=== PATIENT | female | born 1930 | race Caucasian/White ===

== ENCOUNTER 2017-08-11 08:56 | Inpatient (IN) ==
--- NOTE | 2017-08-11 09:23 | Emergency Department Note ---
Disposition Clinical Impression: Atrial fibrillation with RVR, Acute exacerbation of chronic obstructive airways disease Congestive heart failure Qualifiers: Heart failure type: unspecified Heart failure chronicity: acute on chronic Qualified Code(s): I50.9 - Heart failure, unspecified Pulmonary embolism Qualifiers: Pulmonary embolism type: other Chronicity: acute Acute cor pulmonale presence: without acute cor pulmonale Qualified Code(s): I26.99 - Other pulmonary embolism without acute cor pulmonale Disposition: Admitted As Inpatient Condition: Fair Referrals: Harriet Lama MD [Partnered Physician] - Forms: ED Satisfaction Letter SOB HPI - General Stated Complaint: Difficulty Breathing Time Seen by Provider: 08/11/17 08:57 Source: patient, EMS Mode of arrival: EMS Limitations: no limitations - History of Present Illness 86 yo F reports to the ED c/o SOB worse today. Patient was seen 07/26/17 at urgent care for similar sxs. Patient sent to ER from urgent care due to low O2 sat. Patient was worked up for possible COPD exacerbation but refused admission. Patient was discharged home on Azithromycin and Prednisone. Patient reports never fully getting better and continuing to have SOB, productive cough with clear sputum. She has a sore throat and was diagnosed with Thrush recently by PCP. She does report palipitations today. She denies fever, nasal congestion , chest pain, orthopnea. Pt Subjective Complaint: shortness of breath Onset (ago): week(s) (2 weeks worse today) Context: recent illness Consistency/Duration: constant Improves with: oxygen, bronchodilators Associated symptoms: Reports: cough, wheezing, sputum production, palpitations, other (nausea no vomiting). Denies: chest pain, fever, orthopnea, lower extremity pain, polyuria, hemoptysis, abdominal pain Cough present: Yes Cough Description: Productive Sputum production: Yes Sputum Color: Clear - Related Data Home Medications Medication Instructions Recorded Confirmed Aspirin [Adult Aspirin Regimen] 81 mg PO DAILY 08/11/17 08/11/17 Calcium Carbonate [Calcium] 500 mg PO DAILY 08/11/17 08/11/17 Metoprolol Tartrate [Metoprolol 100 mg PO DAILY 08/11/17 08/11/17 Tartrate] Multivitamin [One Daily Essential] 1 tab PO DAILY 08/11/17 08/11/17 Simvastatin [Zocor] 20 mg PO HS 08/11/17 08/11/17 metFORMIN [Glucophage] 500 mg PO DAILY 08/11/17 08/11/17 Allergies Allergy/AdvReac Type Severity Reaction Status Date / Time guaifenesin [From Mucinex] Allergy Rash Verified 08/11/17 10:44 Penicillins [PCN] Allergy Rash Verified 08/11/17 10:44 sulfamethoxazole Allergy Rash Verified 08/11/17 10:44 [From Bactrim] trimethoprim [From Bactrim] Allergy Rash Verified 08/11/17 10:44 chlorine Allergy See Uncoded 08/11/17 10:44 Comments Review of Systems: As Per HPI Past Medical History - Past Medical History Medical history: Reports: diabetes, hypertension, myocardial infarction Psychiatric history: Reports: no psych history - Social History Smoking Status: Former smoker Smokeless Tobacco Status: No Alcohol use: Reports: none Drug use: Reports: none Physical Exam - General Limitations: no limitations General appearance: alert, in no apparent distress - Head Head exam: atraumatic, normocephalic - Eye Eye exam: Present: PERRL, EOMI - ENT ENT exam: mucous membranes moist, other (Thursh) - Neck Neck exam: Present: full ROM, trachea midline - Chest Chest inspection: Present: symmetric chest wall rise. Absent: tenderness - Respiratory Respiratory exam: Present: wheezes. Absent: respiratory distress - Cardiovascular Cardiovascular exam: Present: tachycardia, irregular rhythm - Abdominal Exam Abdominal exam: Present: soft, Non-Tender - Extremities Exam Extremities exam: Present: pedal edema. Absent: calf tenderness - Neurological Exam Neurological exam: Present: alert, oriented X3, CN II-XII intact. Absent: motor sensory deficit - Psychiatric Psychiatric exam: Present: normal affect, normal mood - Skin Skin exam: Present: warm, dry Course Course Narrative: patient presented in new onset a fib with RVR. Patient was started on IV fluid bolus and give 15mg IV cadizem. Patient converted out of a fib, remained tachycardic now sinus tach. Patient given metoprolol to control HR. Patient given Duoneb breathign treatemnt. Patient BNP over 1,000. Fluids stopped. Started IV lasix 40mg once. Will check CTA chest and admit to hospitalist for CHF and COPD exacerbations and new onset a fib with RVR. - Consultations Consultation #1: Discussed case with admitting hospitalist who accepted patient for admission. Vital Signs Temperature 98.7 F 08/11/17 09:13 Pulse Rate 141 08/11/17 09:13 Respiratory Rate 18 08/11/17 09:13 Blood Pressure 166/85 08/11/17 09:13 O2 Sat by Pulse Oximetry 95 08/11/17 09:13 Temperature 98.7 F 08/11/17 09:13 Pulse Rate 112 08/11/17 11:25 Respiratory Rate 20 08/11/17 11:25 Blood Pressure 100/90 08/11/17 11:25 O2 Sat by Pulse Oximetry 98 08/11/17 11:25 Oxygen Delivery Oxygen Delivery Nasal Cannula Shortness of Breath/Dyspnea - MDM Narrative Medical decision making narrative: Patient had ECHO in 2011 which showed normal systolic dysfunction and mild diastolic dysfunction. Patient fluid overloaded on exam. Patient also having wheezing on exam. Patient had new onset a fib with RVR now out of a fib. We will admit for COPD and CHF exacerbations as well as new onset a fib with RVR. Patient found to have PE on CTA. Will start on Lovenox 1mg/kg Q12H. Another reason patient will need admission. - Differential Diagnosis Likely: acute exacerbation of chronic obstructive airways disease, congestive heart failure - Medical Records Medical records reviewed: Yes I reviewed the patient's medical records. - Lab Data Lab results reviewed: Yes I reviewed the patient's lab results. Result diagrams: 08/11/17 09:27 08/11/17 09:27 Lab Results 08/11/17 08/11/17 08/11/17 Range/Units 09:27 09:27 09:27 WBC 8.0 (4.3-11.1) K/mcL RBC 3.74 L (3.82-4.97) M/mcL Hgb 11.6 (11.5-15.4) g/dL Hct 34.5 L (35.3-44.9) % MCV 92.2 (83.0-100.0) fL MCH 31.0 (28.0-33.3) pg MCHC 33.6 (31.6-35.5) g/dL RDW 14.1 (11.5-14.5) % Plt Count 229 (140-400) K/mcL MPV 10.7 (9.4-12.4) fL Immature Gran % 0.1 (0-4) % Seg Neutrophils % 73.6 % Lymphocytes % 16.6 % Monocytes % 8.2 % Eosinophils % 1.1 % Basophils % 0.4 % Neutrophils # 5.9 (1.6-8.9) K/mcL Lymphocytes # 1.3 (0.6-4.6) K/mcL Monocytes # 0.7 (0.0-1.3) K/mcL Eosinophils # 0.1 (0.0-0.6) K/mcL Basophils # 0.0 (0.0-0.2) K/mcL PT (9.4-12.1) Seconds INR APTT (26.0-36.0) Seconds Sodium 142 (136-145) mEq/L Potassium 3.8 (3.5-5.1) mEq/L Chloride 101 (98-107) mEq/L Carbon Dioxide 26 (23-29) mEq/L BUN 21 (8-23) mg/dL Creatinine 0.72 (0.60-1.20) mg/dL Est GFR ( Amer) > 60 (> 60) Est GFR (Non-Af Amer) > 60 (> 60) BUN/Creatinine Ratio 29 H (6-26) Glucose 233 H (70-105) mg/dL Calculated Osmolality 304 H (280-300) Lactic Acid (0.5-2.2) mmol/L Calcium 9.5 (8.6-10.3) mg/dL Total Bilirubin 0.9 (0.3-1.0) mg/dL Direct Bilirubin 0.2 (0.0-0.2) mg/dL Indirect Bilirubin 0.7 (0.0-1.2) mg/dL AST 22 (13-39) Units/L ALT 17 (7-52) Units/L Alkaline Phosphatase 87 (34-104) Units/L Troponin I 0.05 H* (< 0.04) ng/mL B-Natriuretic Peptide 1028 H (Less than 100) pg/mL Serum Total Protein 7.2 (6.4-8.9) g/dL Albumin 3.2 L (3.5-5.7) g/dL Globulin 4.0 H (2.4-3.5) g/dL Albumin/Globulin Ratio 0.8 L (1.1-2.2) Lipase 31 (11-82) Units/L 08/11/17 08/11/17 Range/Units 09:27 09:40 WBC (4.3-11.1) K/mcL RBC (3.82-4.97) M/mcL Hgb (11.5-15.4) g/dL Hct (35.3-44.9) % MCV (83.0-100.0) fL MCH (28.0-33.3) pg MCHC (31.6-35.5) g/dL RDW (11.5-14.5) % Plt Count (140-400) K/mcL MPV (9.4-12.4) fL Immature Gran % (0-4) % Seg Neutrophils % % Lymphocytes % % Monocytes % % Eosinophils % % Basophils % % Neutrophils # (1.6-8.9) K/mcL Lymphocytes # (0.6-4.6) K/mcL Monocytes # (0.0-1.3) K/mcL Eosinophils # (0.0-0.6) K/mcL Basophils # (0.0-0.2) K/mcL PT 14.8 H (9.4-12.1) Seconds INR 1.4 APTT 31.3 (26.0-36.0) Seconds Sodium (136-145) mEq/L Potassium (3.5-5.1) mEq/L Chloride (98-107) mEq/L Carbon Dioxide (23-29) mEq/L BUN (8-23) mg/dL Creatinine (0.60-1.20) mg/dL Est GFR ( Amer) (> 60) Est GFR (Non-Af Amer) (> 60) BUN/Creatinine Ratio (6-26) Glucose (70-105) mg/dL Calculated Osmolality (280-300) Lactic Acid 1.4 (0.5-2.2) mmol/L Calcium (8.6-10.3) mg/dL Total Bilirubin (0.3-1.0) mg/dL Direct Bilirubin (0.0-0.2) mg/dL Indirect Bilirubin (0.0-1.2) mg/dL AST (13-39) Units/L ALT (7-52) Units/L Alkaline Phosphatase (34-104) Units/L Troponin I (< 0.04) ng/mL B-Natriuretic Peptide (Less than 100) pg/mL Serum Total Protein (6.4-8.9) g/dL Albumin (3.5-5.7) g/dL Globulin (2.4-3.5) g/dL Albumin/Globulin Ratio (1.1-2.2) Lipase (11-82) Units/L - Radiology Data Radiology results reviewed: Yes I reviewed the patient's radiology results. - EKG Data EKG attestation: Yes I reviewed and interpreted this EKG. EKG results narrative: EKG 08/11/17 9:04 A fib with RVR non specific St and t wave abnormality vent rate 144 QRS 86 QT/QTc 275/358 compared to prior EKG of 07/26/17 opatietn ahs new onset a fib with RVR EKG 08/11/17 9;52 SInus tachycardia Rate 115 bpm [place] interval 163 QRS 89 QT/QTc 313/81 sinus tchy cardia compared ot earlier EKG of 9:04 a fib has convrted to sinus rythym.
[2017-08-11] MEDS ORDERED: 0.9 % Sodium Chloride 1,000 ML IVC ONE (09:24)
[2017-08-11] MEDS ORDERED: Isovue-370 500 ML INFUS..BTL IV ONE (09:24)
--- NOTE | 2017-08-11 09:40 | Emergency Department Note ---
Disposition Clinical Impression: Atrial fibrillation with RVR Disposition: Admitted As Inpatient Referrals: Harriet Lama MD [Primary Care Provider] - General Adult HPI - General Chief complaint: ED Shortness of Breath/Dyspnea Stated complaint: Difficulty Breathing Time Seen by Provider: 08/11/17 08:57 Source: patient, EMS Mode of arrival: EMS Limitations: no limitations - History of Present Illness Pain Scale: 0 - Related Data Home Medications Medication Instructions Recorded Confirmed Aspirin 07/26/17 Calcium 07/26/17 Cinnamon 07/26/17 Furosemide 07/26/17 Melatonin 07/26/17 Metformin HCl 07/26/17 Metoprolol 07/26/17 Simvastatin 07/26/17 Turmeric 07/26/17 07/26/17 Vitamin B-12 07/26/17 Vitamin D3 07/26/17 Vitamin E 07/26/17 07/26/17 Previous Rx's Medication Instructions Recorded Azithromycin [Azithromycin 6-Tab 250 mg PO PER PKG DI #6 tab 07/26/17 Pack] PredniSONE [Deltasone] 40 mg PO DAILY #5 tablet 07/26/17 Allergies Allergy/AdvReac Type Severity Reaction Status Date / Time guaifenesin [From Mucinex] Allergy Rash Verified 07/26/17 17:24 Penicillins [PCN] Allergy Rash Verified 07/26/17 17:24 sulfamethoxazole Allergy Rash Verified 07/26/17 17:24 [From Bactrim] trimethoprim [From Bactrim] Allergy Rash Verified 07/26/17 17:24 chlorine Allergy See Uncoded 07/26/17 17:24 Comments Past Medical History - Past Medical History Medical history: Reports: diabetes, hypertension, myocardial infarction Psychiatric history: Reports: no psych history - Social History Smoking Status: Former smoker Smokeless Tobacco Status: No Alcohol use: Reports: none Drug use: Reports: none Physical Exam - General Limitations: no limitations General appearance: alert, in no apparent distress Course Vital Signs Temperature 98.7 F 08/11/17 09:13 Pulse Rate 141 08/11/17 09:13 Respiratory Rate 18 08/11/17 09:13 Blood Pressure 166/85 08/11/17 09:13 O2 Sat by Pulse Oximetry 95 08/11/17 09:13 Temperature 98.7 F 08/11/17 09:13 Pulse Rate 141 08/11/17 09:13 Respiratory Rate 18 08/11/17 09:13 Blood Pressure 166/85 08/11/17 09:13 O2 Sat by Pulse Oximetry 98 08/11/17 09:21 Oxygen Delivery Oxygen Delivery Nasal Cannula Attestation Statement - Attestation Attestation: I examined this patient and my medical decision-making was reviewed with the Resident Physician. I agree with the documented findings, disposition and treatment plan as described except to the extent set forth below. 86 year old female presents to the ED with afib rvr and a history of cough with possible pneumonia/COPD excerbation. Pablo states taht she was advised to be admitted earlier this month from urgent care and ED but declined at that time. Is unsure how long she has been in afib rvr. Crescencio does not have a previous history of afib with rvr. We will do a cardiopulmonary workup , treat with IVF, cardizem and rule out PE/pnueoina with CTA chest. Admit to medicine
[2017-08-11 09:49] LABS: Basophils % 0.4 %; Eosinophils # 0.1 K/mcL (0.0-0.6); Eosinophils % 1.1 %; Hematocrit 34.5 % (35.3-44.9); Hemoglobin 11.6 g/dL (11.5-15.4); Immature Granulocytes % 0.1 % (0-4); Lymphocytes # 1.3 K/mcL (0.6-4.6); Lymphocytes % 16.6 %; Mean Corpuscular HGB Conc 33.6 g/dL (31.6-35.5); Mean Corpuscular Volume 92.2 fL (83.0-100.0); Mean Platelet Volume 10.7 fL (9.4-12.4); Monocytes # 0.7 K/mcL (0.0-1.3); Monocytes % 8.2 %; Neutrophils # 5.9 K/mcL (1.6-8.9); Platelet Count 229 K/mcL (140-400); Red Blood Count 3.74 M/mcL (3.82-4.97); Red Cell Distribution Width 14.1 % (11.5-14.5); Segmented Neutrophils % 73.6 %
[2017-08-11 10:00] LABS: INR 1.4; Prothrombin Time 14.8 Seconds (9.4-12.1)
[2017-08-11 10:03] LABS: Activated Partial Thrombo Time 31.3 Seconds (26.0-36.0)
[2017-08-11] MEDS ORDERED: *HR* Metoprolol 5 MG/5 ML VIAL IVP ONE (10:06)
[2017-08-11] MEDS ORDERED: Ipratropium/Albuterol Neb 3 ML IH ONE (10:06)
[2017-08-11 10:21] LABS: Troponin I 0.05 ng/mL (< 0.04)
[2017-08-11 10:22] LABS: Alanine Aminotransferase 17 Units/L (7-52); Albumin 3.2 g/dL (3.5-5.7); Albumin/Globulin Ratio 0.8 (1.1-2.2); Alkaline Phosphatase 87 Units/L (34-104); Aspartate Amino Transferase 22 Units/L (13-39); BUN/Creatinine Ratio 29 (6-26); Bilirubin,Direct 0.2 mg/dL (0.0-0.2); Bilirubin,Indirect 0.7 mg/dL (0.0-1.2); Bilirubin,Total 0.9 mg/dL (0.3-1.0); Blood Urea Nitrogen 21 mg/dL (8-23); Calcium 9.5 mg/dL (8.6-10.3); Carbon Dioxide 26 mEq/L (23-29); Chloride 101 mEq/L (98-107); Glucose 233 mg/dL (70-105); Lipase 31 Units/L (11-82); Osmolality,Calculated 304 (280-300); Potassium 3.8 mEq/L (3.5-5.1); Sodium 142 mEq/L (136-145); Total Protein 7.2 g/dL (6.4-8.9); eGFR For African Americans > 60 (> 60); eGFR For Non-African Americans > 60 (> 60)
[2017-08-11] MEDS ORDERED: Furosemide 40 MG/4 ML VIAL IVP ONE (10:22)
[2017-08-11] MEDS ORDERED: Aspirin 81 MG TAB.CHEW PO STA (10:22)
[2017-08-11] MEDS ORDERED: *HR* Enoxaparin 120 MG/0.8 ML SYRINGE SQ ONE (12:00)
[2017-08-11] MEDS ORDERED: Acetaminophen 325 MG TABLET PO PRN (12:26)
[2017-08-11] MEDS ORDERED: traMADol 50 MG TABLET PO PRN (12:26)
[2017-08-11] MEDS ORDERED: Naloxone 0.4 MG/ML INJ IVP PRN (12:26)
--- NOTE | 2017-08-11 12:28 | Electrocardiograph Report ---
[place] [facility] Test Date: 2017-08-11 Pat Name: Bindu Wilkins Department: 102 Room: 2A Gender: F Nicu Rn: Holden : 1930 Requested By: Rox Carballo Order Number: [id number] Reading MD: Braulio Damian Measurements Intervals [place] Rate: 144 P: [place]: 0 QRS: 8 QRSD: 86 T: 59 QT: 275 QTc: 358 Interpretive Statements ATRIAL FIBRILLATION WITH RAPID VENTRICULAR RESPONSE NONSPECIFIC ST & T-WAVE ABNORMALITY ABNORMAL RHYTHM ECG INTERPRETATION BASED ON A DEFAULT AGE OF 40 YEARS Electronically Signed On 08-11-2017 12:26:31 EDT by Braulio Damian
--- NOTE | 2017-08-11 12:28 | Electrocardiograph Report ---
[place] [employer] [facility] Test Date: 2017-08-11 Pat Name: Bindu Wilkins Department: 102 Room: 2A51 Gender: F Manuscript Editor: Holden : 1930 Requested By: Rox Carballo Order Number: [id number] Reading MD: Braulio Damian Measurements Intervals [place] Rate: 115 P: 39 AR: 163 QRS: 12 QRSD: 89 T: 48 QT: 313 QTc: 381 Interpretive Statements SINUS TACHYCARDIA MODERATE ST DEPRESSION [0.05+ mV ST DEPRESSION] Electronically Signed On 08-11-2017 12:26:56 EDT by Braulio Damian
[2017-08-11] MEDS ORDERED: *HR* Heparin 5,000 UNIT/ML VIAL IVP PRN (12:32)
[2017-08-11] MEDS ORDERED: *HR* Heparin 5,000 UNIT/ML VIAL IVP ONE (12:32)
[2017-08-11] MEDS ORDERED: Ipratropium/Albuterol Neb 3 ML IH PRN (12:46)
--- NOTE | 2017-08-11 13:00 | Internal Med History&Physical ---
Date of Encounter: 08/11/17 Time of Encounter: 13:01 Internal Medicine - H&P: HPI Admitted From: Home Plans for Post Hospital Care: Home History of present illness: 86 yo F reports to the ED c/o SOB worse today. Patient was seen 07/26/17 at urgent care for similar sxs. Patient sent to ER from urgent care due to low O2 sat. Patient was worked up for possible COPD exacerbation but refused admission. Patient was discharged home on Azithromycin and Prednisone. Patient reports never fully getting better and continuing to have SOB, productive cough with clear sputum. She has a sore throat and was diagnosed with Thrush recently by PCP. She does report palipitations today. She denies fever, nasal congestion , chest pain, orthopnea. At the ED, she was found to have atrial fibrillation with rapid ventricular response. She received Cardizem bolus. CTA of the chest revealed subsegmental PE. Shee will be admitted as inpatient for further management Past Med Surg Social Fam HX - Past Medical History Medical history: diabetes, hypertension, myocardial infarction Psychiatric history: no psych history - Social History Smoking Status: Former smoker Smokeless Tobacco Status: No Alcohol use: none Drug use: none Internal Medicine - H&P: Meds Aspirin [Adult Aspirin Regimen] 81 mg PO DAILY 08/11/17 [History] Calcium Carbonate [Calcium] 500 mg PO DAILY 08/11/17 [History] Metoprolol Tartrate [Metoprolol Tartrate] 100 mg PO DAILY 08/11/17 [History] Multivitamin [One Daily Essential] 1 tab PO DAILY 08/11/17 [History] Simvastatin [Zocor] 20 mg PO HS 08/11/17 [History] metFORMIN [Glucophage] 500 mg PO DAILY 08/11/17 [History] 3 Allergy/AdvReac Type Severity Reaction Status Date / Time guaifenesin [From Mucinex] Allergy Rash Verified 08/11/17 10:44 Penicillins [PCN] Allergy Rash Verified 08/11/17 10:44 sulfamethoxazole Allergy Rash Verified 08/11/17 10:44 [From Bactrim] trimethoprim [From Bactrim] Allergy Rash Verified 08/11/17 10:44 chlorine Allergy See Uncoded 08/11/17 10:44 Comments All Systems PM: A 10-system review of systems was performed and is negative for pertinent findings except as documented above in the HPI. Review of systems: REVIEW OF SYSTEMS: CONSTITUTIONAL: No weight loss, fever, chills, weakness or fatigue. HEENT: Eyes: No visual loss, blurred vision, double vision or yellow sclerae. Ears, Nose, Throat: No hearing loss, sneezing, congestion, runny nose or sore throat. SKIN: No rash or itching. CARDIOVASCULAR: No chest pain, chest pressure or chest discomfort. No palpitations or edema. RESPIRATORY: No shortness of breath, cough or sputum. GASTROINTESTINAL: No anorexia, nausea, vomiting or diarrhea. No abdominal pain or blood. GENITOURINARY: No dysuria, urgency, or frequency. NEUROLOGICAL: No headache, dizziness, syncope, paralysis, ataxia, numbness or tingling in the extremities. No change in bowel or bladder control. MUSCULOSKELETAL: No muscle, back pain, joint pain or stiffness. HEMATOLOGIC: No anemia, bleeding or bruising. LYMPHATICS: No enlarged nodes. No history of splenectomy. PSYCHIATRIC: No history of depression or anxiety. ENDOCRINOLOGIC: No reports of sweating, cold or heat intolerance. No polyuria or polydipsia. - Constitutional Vitals: Temp Pulse Resp BP Pulse Ox 98.9 F 132 17 111/68 96 08/11/17 12:24 08/11/17 12:24 08/11/17 12:24 08/11/17 12:24 08/11/17 12:24 General appearance: Present: A&O X 3 Exam: PHYSICAL EXAMINATION: GENERAL APPEARANCE: The patient is alert, oriented and in no acute distress. HEENT: Head is normocephalic. The sinuses are nontender. Pupils are equal and reactive. The nares are patent. Oropharynx clear without lesions. NECK: Supple without lymphadenopathy. HEART: Regular rate and rhythm. LUNGS: No crackles or wheezes are heard. ABDOMEN: Soft, nontender, nondistended with good bowel sounds heard. Inguinal area is normal. EXTREMITIES: Without cyanosis, clubbing or edema. NEUROLOGICAL: Gross nonfocal. SKIN: Warm and dry without any rash. Internal Med - H&P Results - Labs CBC & Chem 7: 08/11/17 09:27 08/11/17 09:27 - Assessment and plan (1) Acute exacerbation of chronic obstructive airways disease Current Visit: Yes Status: Acute Assessment and plan: 86-year-old male female with past medical history of CAD status post CABG, diabetes, hypertension, and hyperlipidemia presented with worsening shortness of breath. Patient has history of smoking, but never been diagnosed with COPD. She had a CAD and had a CABG about 15 years ago. She has been compliant with medications. She reported she had on and off respiratory distress and shortness of breath for almost a year. Her symptoms worsened in the past several weeks. She was found to have atrial fibrillation with RVR at the ED, CTA. Chest also revealed subsegmental PE. - Hold shortness of breath might be caused by multiple factors including tachycardia, PE, or possible COPD. - Was start patient on Cardizem drip and switched to by mouth Cardizem once heart rate was controlled. - Start patient on heparin drip, bridged to oral anticoagulations. - But the patient on DuoNeb every 4 hours plus when necessary. Patient needed a PFT test to confirm/rule out COPD. - Echocardiogram to rule out possible CHF. (2) Atrial fibrillation with RVR Current Visit: Yes Status: Acute Assessment and plan: - New onset of atrial fibrillation, will check TSH. Cardiology consult. Pending echocardiogram. (3) Pulmonary embolism Current Visit: Yes Status: Acute Assessment and plan: - Subsegmental PE, heparin drip for the started, doppler to bilateral lower extremity to rule out DVT. Qualifiers: Pulmonary embolism type: other Chronicity: acute Acute cor pulmonale presence: without acute cor pulmonale Qualified Code(s): I26.99 - Other pulmonary embolism without acute cor pulmonale (4) CAD (coronary artery disease) Current Visit: No Status: Chronic Assessment and plan: - CAD status post CABG, slightly elevated troponin, patient denies chest pain, continue cycle troponin, telemetry monitoring, EKG as needed, echocardiogram in a.m. Qualifiers: Coronary Disease-Associated Artery/Lesion type: bypass graft [place] vs. transplanted heart: tribal heart Associated angina: without angina Qualified Code(s): I25.810 - Atherosclerosis of coronary artery bypass graft(s) without angina pectoris (5) HTN (hypertension) Current Visit: No Status: Chronic Assessment and plan: - BP controlled, continue home medication. Qualifiers: Hypertension type: essential hypertension Qualified Code(s): I10 - Essential (primary) hypertension (6) Hyperlipidemia Current Visit: No Status: Chronic Assessment and plan: - Continue home medication. Qualifiers: Hyperlipidemia type: pure hypercholesterolemia Qualified Code(s): E78.00 - Pure hypercholesterolemia, unspecified; E78.0 - Pure hypercholesterolemia (7) Diabetes mellitus Current Visit: Yes Status: Acute Assessment and plan: - Hemoglobin A1c 6.6 last month, hold her home metformin for now, continue insulin sliding scale. Qualifiers: Diabetes mellitus type: type 2 Diabetes mellitus long term care phlebotomist insulin use: without long term care phlebotomist use Diabetes mellitus complication status: without complication Qualified Code(s): E11.9 - Type 2 diabetes mellitus without complications - Time Spent With Patient Total time spent is greater than 50% in coordination of care (as documented) at patient's floor/unit and/or counseling patient: Greater than 35 minutes
[2017-08-11] MEDS: Ipratropium/Albuterol Neb 3 ML IH SCH ×4 (13:32→23:42)
[2017-08-11] MEDS: Heparin 25,000 UNIT/500 ML D5W 25,000 UNIT/500 ML BAG IVC SCH (13:33)
[2017-08-11 13:40] LABS: Hemoglobin 10.9 g/dL (11.5-15.4); Mean Corpuscular Hemoglobin 30.3 pg (28.0-33.3); Mean Corpuscular Volume 91.7 fL (83.0-100.0); Mean Platelet Volume 11.1 fL (9.4-12.4); Platelet Count 227 K/mcL (140-400); Red Cell Distribution Width 14.1 % (11.5-14.5)
[2017-08-11 13:46] LABS: INR 1.4
[2017-08-11] MEDS ORDERED: *HR* Heparin 5,000 UNIT/ML VIAL SQ SCH (16:00)
[2017-08-11] MEDS ORDERED: Metoprolol 100 MG TABLET PO SCH (17:00)
[2017-08-11] MEDS ORDERED: Dextrose Gel 15 GM/37.5 ML TUBE PO PRN ×2 (17:51)
[2017-08-11] MEDS ORDERED: *HR* Dextrose 50 % in Water (Syg) 50 ML SYRINGE IVP PRN (17:51)
[2017-08-11] MEDS ORDERED: D5% in Water 1,000 ML IVC PRN (17:51)
[2017-08-11] MEDS: Insulin LISPRO 300 UNITS/3 ML VIAL SQ SCH (20:19)
[2017-08-11] MEDS: *HR* Heparin 5,000 UNIT/ML VIAL IVP PRN (20:20)
[2017-08-12] MEDS: MethylPREDNISolone 40 MG/ML VIAL IVP SCH ×2 (00:23→08:13)
[2017-08-12 03:12] LABS: Basophils % 0.4 %; Eosinophils % 0.3 %; Hematocrit 30.5 % (35.3-44.9); Hemoglobin 10.5 g/dL (11.5-15.4); Immature Granulocytes % 0.5 % (0-4); Lymphocytes # 0.6 K/mcL (0.6-4.6); Lymphocytes % 7.6 %; Mean Corpuscular HGB Conc 34.4 g/dL (31.6-35.5); Mean Corpuscular Hemoglobin 31.3 pg (28.0-33.3); Mean Platelet Volume 10.8 fL (9.4-12.4); Monocytes # 0.3 K/mcL (0.0-1.3); Monocytes % 3.4 %; Neutrophils # 6.5 K/mcL (1.6-8.9); Platelet Count 228 K/mcL (140-400); Red Blood Count 3.35 M/mcL (3.82-4.97); Red Cell Distribution Width 13.9 % (11.5-14.5); Segmented Neutrophils % 87.8 %
[2017-08-12] MEDS: Heparin 25,000 UNIT/500 ML D5W 25,000 UNIT/500 ML BAG IVC SCH ×2 (03:26→16:12)
[2017-08-12 03:30] LABS: BUN/Creatinine Ratio 29 (6-26); Blood Urea Nitrogen 20 mg/dL (8-23); Carbon Dioxide 26 mEq/L (23-29); Chloride 101 mEq/L (98-107); Glucose 305 mg/dL (70-105); Osmolality,Calculated 302 (280-300); Potassium 3.3 mEq/L (3.5-5.1); Sodium 139 mEq/L (136-145); eGFR For African Americans > 60 (> 60); eGFR For Non-African Americans > 60 (> 60)
[2017-08-12] MEDS: Ipratropium/Albuterol Neb 3 ML IH SCH ×6 (03:33→23:16)
[2017-08-12 03:46] LABS: Thyroid Stimulating Hormone 0.018 mcIU/mL (0.340-5.600)
[2017-08-12] MEDS: *HR* Heparin 5,000 UNIT/ML VIAL IVP PRN (03:49)
[2017-08-12] MEDS: Multivit/Ca/Min/Fe/FA 1 TAB TABLET PO SCH (08:13)
[2017-08-12] MEDS: Aspirin Enteric Coated 81 MG Tablet PO SCH (08:13)
[2017-08-12] MEDS: Insulin LISPRO 300 UNITS/3 ML VIAL SQ SCH ×5 (08:15→20:18)
[2017-08-12] MEDS: Metoprolol 100 MG TABLET PO SCH ×2 (08:19→20:18)
[2017-08-12 08:46] LABS: Triiodothyronine (T3) Free 14.16 pg/mL (2.50-3.90)
[2017-08-12 08:51] LABS: Triiodothyronine (T3) Total 2.94 ng/mL (0.87-1.78)
[2017-08-12] MEDS ORDERED: Metoprolol 100 MG TABLET PO SCH (09:00)
[2017-08-12] MEDS ORDERED: Metoprolol XL (24 HR) Succ 50 MG TAB.ER.24H PO SCH (09:00)
[2017-08-12] MEDS ORDERED: Potassium Chloride Elixir 20 MEQ/15 ML UDC PO ONE (09:15)
--- NOTE | 2017-08-12 09:47 | Cardiology Consult Note ---
<Renata Davis - Last Filed: 08/12/17 09:43> Date of Encounter: 08/12/17 Time of Encounter: 09:00 Assessment and Plan (1) Pulmonary embolism Current Visit: Yes Status: Acute Per cardiology: -Admitted with increased shortness of breath. -PE noted per CT. -Management per primary service. Qualifiers: Pulmonary embolism type: other Chronicity: acute Acute cor pulmonale presence: without acute cor pulmonale Qualified Code(s): I26.99 - Other pulmonary embolism without acute cor pulmonale (2) Elevated troponin Current Visit: Yes Status: Acute Per cardiology: -Troponins 0.05 x3, 0.04 in the setting of PE. -Denies chest pain. -NO acute ischemic ECG changes. -HIstory of CABG 1999. -TTE 2011 with LVEF 60-65%, mild diastolic dysfunction, mild bi-atrial enlargement, mild TR, no segmental wall motion abnormalities. -ON heparin drip (also with PE). ON asa, statin, BB. -TTE pending -DO not suspect NSTEMI, suspect demand ishcemia related to above. NO cardiac rehab consult warranted. -Cardiology will sign off. Please re-consult if significant abnormality noted per TTE. -WIll arrange outpateint follow up. (3) Tachycardia Current Visit: Yes Status: Acute Per cardiology: -Tachycardia in the setting of PE. -ECGs reviewed with , Sinus tachycardia. -Telemetry reviewed with average HR 110, sinus tachycardia. -No a.fib/flutter appreciated. -ON BB. -Suspect tachycardia will improve as clinical condition improves. Discussion w patient/family: The assessment and plan as outlined above was discussed with the patient who expressed understanding and agreement. All questions were answered. Thank you for involving us in the care of your patient. Please call with any questions. Discussed and reviewed with . History of Present Illness Consult date: 08/11/17 Requesting physician: hTuy Ibanez Consult reason: a.fib RVR, elevated troponin Chief complaint: shortness of breath History of present illness: Ms. Wilkins is a 86 year old female with a relevant past medical history of CAD s /p CABG 1999, HTN, HLD, DM who presented to [facility] with complaints of shortness of breath. Patient has been diagnosed with PE. Cardiology has been consulted for elevated troponin. Patient denies chest pain. Reports shortness of breath. Patient reports fatigue is about baseline. Past Med Surg Social Fam HX - Past Medical History Attestation: Yes The following information was validated with the patient. Source: patient, old records reviewed Medical history: coronary artery disease, diabetes, hypertension, myocardial infarction Psychiatric history: no psych history - Social History Smoking Status: Former smoker Smokeless Tobacco Status: No Alcohol use: none Drug use: none Medications and Allergies Aspirin [Adult Aspirin Regimen] 81 mg PO DAILY 08/11/17 [History] Calcium Carbonate [Calcium] 500 mg PO DAILY 08/11/17 [History] Metoprolol Tartrate [Metoprolol Tartrate] 100 mg PO DAILY 08/11/17 [History] Multivitamin [One Daily Essential] 1 tab PO DAILY 08/11/17 [History] Simvastatin [Zocor] 20 mg PO HS 08/11/17 [History] metFORMIN [Glucophage] 500 mg PO DAILY 08/11/17 [History] 3 Allergy/AdvReac Type Severity Reaction Status Date / Time guaifenesin [From Mucinex] Allergy Rash Verified 08/11/17 10:44 Penicillins [PCN] Allergy Rash Verified 08/11/17 10:44 sulfamethoxazole Allergy Rash Verified 08/11/17 10:44 [From Bactrim] trimethoprim [From Bactrim] Allergy Rash Verified 08/11/17 10:44 chlorine Allergy See Uncoded 08/11/17 10:44 Comments All Systems Review: The remainder of the systems were reviewed and are negative - Constitutional Constitutional: fatigue - Cardiovascular Cardiovascular: as per HPI, dyspnea at rest, dyspnea on exertion Physical Examination Vital Signs, Last 4 Hours Temp Pulse Resp BP Pulse Ox 08/12/17 07:35 16 94 08/12/17 07:34 98.6 F 110 19 157/98 92 General: Conversant, No Apparent Distress HEENT: Atraumatic, Normocephaly, Mucus Membranes Moist Neck: No JVD, Normal carotid pulses Cardiac: Reg Rate and Rhythm, Normal S1 and S2, No Murmur Lungs: Normal Breath Sounds, No Wheeze, Rales, Rhonchi Neuro: Alert and responsive, No focal deficits noted Abdomen: Soft, Non-Tender Skin: No rashes noted on visualized skin Musculoskeletal: No Chest Wall Tenderness Extremities: No Clubbing, No Cyanosis, No Edema, Normal Pulses Results 08/12/17 02:54 08/12/17 02:54 Lab Results Impressions Chest CTA 08/11/17 09:24 IMPRESSION: There appear to be a few small nonocclusive emboli in the left lower lobe subsegmental branches. No central PE. This was called to and discussed with Dr. Carballo at 11:36 a.m. on 08/11/2017. Pulmonary arterial enlargement suggestive of pulmonary arterial hypertension. Patchy mosaic attenuation seen throughout the lungs bilaterally suggestive of chronic small airways disease or less likely chronic thromboembolic disease. Atherosclerotic disease with heavy coronary artery involvement and postsurgical change from prior CABG. Thyroid enlargement without discrete nodule seen on CT imaging. Focal cluster of small ground-glass nodules in the right upper lobe, which could be related to an inflammatory/infectious process such as infectious bronchiolitis. Recommendations for follow-up as below, with CT of the chest recommended in 3-6 months and if stable at 2 and 4 years. RECOMMENDATIONS: Fleischner Society guidelines for follow-up and management of incidentally detected subsolid pulmonary nodules: Multiple subsolid nodules < 6 mm - CT at 3-6 months. If stable, consider CT at 2 and 4 years. > than or equal to 6 mm - [address] at 3-6 months. Subsequent management based on the most suspicious nodule(s). - Low risk patients include individuals with minimal or absent history of smoking and other known risk factors. - High risk patients include individuals with a history or smoking or known risk factors. Radiology 2017 http://pubs.rsna.org/doi/full/10.1148/radiol.6103221259 D/ / 08/11/2017 12:00:36 Isacc Bryant MD / mina Interpreting Provider: Isacc Bryant MD Active Medications Acetaminophen (Tylenol) 650 mg PO Q6HR PRN PRN Reason: Mild Pain/Fever Stop: 02/10/18 12:27 Albuterol/Ipratropium (Duoneb) 3 ml IH [id number] JONATHAN Stop: 02/10/18 13:01 Last Admin: 08/12/17 07:35 Dose: 3 ml Albuterol/Ipratropium (Duoneb) 3 ml IH [id number] PRN PRN Reason: Shortness Of Breath/Wheezing Stop: 02/10/18 12:47 Aspirin (Aspirin Ec) 81 mg PO DAILY JONATHAN Stop: 02/11/18 09:01 Last Admin: 08/12/17 08:13 Dose: 81 mg Calcium Carbonate (Tums) 500 mg PO DAILY JONATHAN Stop: 02/11/18 09:01 Last Admin: 08/12/17 08:13 Dose: 500 mg Dextrose/Water (Dextrose 50% (Syg)) 25 ml IVP AD PRN PRN Reason: Hypoglycemia Stop: 02/10/18 17:52 Glucagon (Glucagen) 1 mg IM ONCE PRN PRN Reason: Hypoglycemia Stop: 02/10/18 17:52 Glucose (Gluctose) 15 gm PO ONCE PRN PRN Reason: Hypoglycemia Stop: 02/10/18 17:52 Glucose (Gluctose) 30 gm PO ONCE PRN PRN Reason: Hypoglycemia Stop: 02/10/18 17:52 Heparin Sodium (Porcine) (Heparin Lock) 500 unit IV ONCE PRN PRN Reason: [place] while in RADIOLOGY Stop: 08/13/17 09:24 Heparin Sodium (Porcine) (Heparin) 8,600 unit 70 unit/kg (8600 unit) IVP Q6HR PRN PRN Reason: SEE COMMENTS Stop: 02/10/18 12:33 Heparin Sodium (Porcine) (Heparin) 4,300 unit 35 unit/kg (4300 unit) IVP Q6H PRN PRN Reason: SEE COMMENTS Stop: 02/10/18 12:33 Last Admin: 08/12/17 03:49 Dose: 4,300 unit Diltiazem HCl 125 mg/ Sodium (Chloride) 125 mls @ 5 mls/hr IVC .Q24H JONATHAN; 5 MG/ HR PRN Reason: Protocol Stop: 02/10/18 12:31 Last Titration: 08/12/17 04:31 Dose: 12.5 mg/hr, 12.5 mls/hr Heparin Sodium/Dextrose (Heparin 25,000 Unit/500 Ml D5w) 25,000 unit in 500 mls @ 34.916 mls/hr IVC .[id number] JONATHAN; 14 UNIT/KG/HR PRN Reason: Protocol Stop: 02/10/18 12:46 Last Titration: 08/12/17 03:49 Dose: 18 unit/kg/hr, 44.9 mls/hr Dextrose (Dextrose 5%) 1,000 mls @ 100 mls/hr IVC .Q10H PRN PRN Reason: HYPOGLYCEMIA Stop: 02/10/18 17:52 Insulin Human Lispro (Humalog) 0 units SQ HS [facility] PRN Reason: Protocol Stop: 02/10/18 21:01 Last Admin: 08/11/17 20:19 Dose: 6 units Insulin Human Lispro (Humalog) 0 units SQ TIDAC [facility] PRN Reason: Protocol Stop: 02/11/18 07:31 Last Admin: 08/12/17 08:15 Dose: 14 units Methylprednisolone (Solu-Medrol) 40 mg IVP Q8HR [facility] Stop: 02/11/18 00:01 Last Admin: 08/12/17 08:13 Dose: 40 mg Metoprolol Tartrate (Lopressor) 100 mg PO BID [facility] Stop: 02/11/18 09:01 Last Admin: 08/12/17 08:19 Dose: 100 mg Multivitamins/Calcium (Thera M Plus) 1 tab PO DAILY [facility] Stop: 02/11/18 09:01 Last Admin: 08/12/17 08:13 Dose: 1 tab Naloxone HCl (Narcan) 0.4 mg IVP Q2MIN PRN PRN Reason: SEE COMMENTS Stop: 02/10/18 12:27 Simvastatin (Zocor) 20 mg PO HS [facility] PRN Reason: Protocol Stop: 02/10/18 21:01 Last Admin: 08/11/17 20:19 Dose: 20 mg Tramadol HCl (Ultram) 50 mg PO Q6HR PRN PRN Reason: Moderate Pain Stop: 02/10/18 12:27 Laboratory Tests 08/11/17 08/11/17 08/11/17 09:27 12:49 19:03 Hgb Creatinine Troponin I 0.05 H* 0.05 H* 0.05 H* 08/12/17 08/12/17 08/12/17 01:09 02:54 02:54 Hgb 10.5 L Creatinine 0.69 Troponin I 0.04 H* - Imaging and Cardiology Chest Xray: report reviewed Echo: pending, report reviewed - EKG Interpretation EKG results cardiology: personally reviewed (ECG with sinus tachycardia, HR 144. ), other (Telemetry reveiwed with average HR previous 12 hours noted to be 110, ST.) Consult Discharge Plan - Plan Referrals: Harriet Lama MD [Primary Care Provider] - <Ori Larson - Last Filed: 08/12/17 15:54> Date of Encounter: 08/12/17 - Attending Attestation I have personally performed a face to face evaluation on this patient. I have reviewed and agree with the care plan. History and Exam by me shows: 86 YOF presents with SOB sudden in onset found to have a PE, EKG reviewed no Afib only sinus tachy likely secondary to her PE. No cardiac testing Assessment and Plan Discussion w patient/family: The assessment and plan as outlined above was discussed with the patient and/or family members who expressed understanding and agreement. All questions were answered. Thank you for involving us in the care of your patient. Please call with any questions. History of Present Illness History of present illness: Ms. Wilkins is a 86 year old female All Systems Review: The remainder of the systems were reviewed and are negative Physical Examination Vital Signs, Last 4 Hours Resp Pulse Ox 08/12/17 15:37 16 95 Results 08/12/17 02:54 08/12/17 02:54 Lab Results 08/11/17 08/11/17 08/12/17 19:03 19:03 01:09 WBC Hgb Hct Plt Count APTT 45.6 H D Sodium Potassium Chloride Carbon Dioxide BUN Creatinine Glucose Calcium Troponin I 0.05 H* 0.04 H* TSH 08/12/17 08/12/17 08/12/17 02:54 02:54 02:54 WBC 7.4 Hgb 10.5 L Hct 30.5 L Plt Count 228 APTT Sodium 139 Potassium 3.3 L Chloride 101 Carbon Dioxide 26 BUN 20 Creatinine 0.69 Glucose 305 H Calcium 9.0 Troponin I TSH 0.018 L 08/12/17 08/12/17 02:54 10:38 WBC Hgb Hct Plt Count APTT 58.1 H 94.4 H D Sodium Potassium Chloride Carbon Dioxide BUN Creatinine Glucose Calcium Troponin I TSH
[2017-08-12] MEDS ORDERED: methIMAzole 5 MG TABLET PO SCH (10:00)
[2017-08-12] MEDS: methIMAzole 5 MG TABLET PO SCH ×3 (10:47→20:18)
--- NOTE | 2017-08-12 15:48 | Internal Med Progress Note ---
Date of Encounter: 08/12/17 Time of Encounter: 10:15 - Assessment and plan (1) Hyperthyroidism Current Visit: Yes Status: Acute Assessment and plan: New diagnosis. TSH noted to be very low with elevated free T4 and free T3. Start by mouth methimazole and monitor TSH. Check thyroid ultrasound. (2) Atrial fibrillation with RVR Current Visit: Yes Status: Ruled-out Assessment and plan: Cardiology consult appreciated; Telemetry and EKGs did not show atrial fibrillation/flutter apparently, in sinus tachycardia. We will discontinue IV Cardizem drip, continue by mouth Cardizem and by mouth metoprolol. Telemetry monitoring. Follow-up echocardiogram. noted to have hyperthyroidism, which is also the reason for tachycardia; (3) Acute exacerbation of chronic obstructive airways disease Current Visit: Yes Status: Acute Assessment and plan: Improving. No known history of COPD. Needs pulmonary function testing as outpatient. Will change IV Solu-Medrol to by mouth prednisone. Continue when necessary breathing treatments and supplemental oxygen as needed. (4) Pulmonary embolism Current Visit: Yes Status: Acute Assessment and plan: CT angiogram of chest shows left-sided subsegmental pulmonary embolism. Follow- up echocardiogram. Continue anticoagulation with IV heparin for now. Will change to oral anticoagulation with Xarelto; pending randall check; Qualifiers: Pulmonary embolism type: other Chronicity: acute Acute cor pulmonale presence: without acute cor pulmonale Qualified Code(s): I26.99 - Other pulmonary embolism without acute cor pulmonale (5) CAD (coronary artery disease) Current Visit: Yes Status: Chronic Qualifiers: Coronary Disease-Associated Artery/Lesion type: bypass graft [place] vs. transplanted heart: [place] heart Associated angina: without angina Qualified Code(s): I25.810 - Atherosclerosis of coronary artery bypass graft(s) without angina pectoris (6) HTN (hypertension) Current Visit: Yes Status: Chronic Qualifiers: Hypertension type: essential hypertension Qualified Code(s): I10 - Essential (primary) hypertension (7) Hyperlipidemia Current Visit: Yes Status: Chronic Qualifiers: Hyperlipidemia type: unspecified Qualified Code(s): E78.5 - Hyperlipidemia , unspecified (8) Diabetes mellitus Current Visit: Yes Status: Chronic Assessment and plan: Noted to have steroid-induced hyperglycemia. Increase sliding scale insulin, continue Accu-Chek blood glucose monitoring. Diabetic diet. Qualifiers: Diabetes mellitus type: type 2 Diabetes mellitus intermediate card tender insulin use: without intermediate card tender use Diabetes mellitus complication status: with hyperglycemia Qualified Code(s): E11.65 - Type 2 diabetes mellitus with hyperglycemia - Time Spent With Patient Total time spent is greater than 50% in coordination of care (as documented) at patient's floor/unit and/or counseling patient: - Subjective Interval history: Reports feeling better. Improved chest pain and shortness of breath. Reports intermittent cough. No fever, chills, nausea, vomiting. No painful leg swelling. - Constitutional Vitals: Temp Pulse Resp BP Pulse Ox 98.1 F 87 16 131/82 95 08/12/17 10:57 08/12/17 11:45 08/12/17 15:37 08/12/17 10:57 08/12/17 15:37 General appearance: Present: A&O X 3, answers questions appropriately - Respiratory Respiratory exam: Present: rales. Absent: accessory muscle use, rhonchi, wheezes - Cardiovascular Cardiovascular exam: Present: RRR, +S1, +S2, tachycardia. Absent: diastolic murmur, gallop, rubs, systolic murmur - GI/Abdominal GI/Abdominal exam: Present: normal bowel sounds, soft (obese), no peritoneal signs. Absent: distended, tenderness - Extremities Exam Extremities exam: Present: full ROM, pedal edema (1+ nonpitting pedal edema), warm, radial pulses palpable and symmetrical. Absent: calf tenderness, cyanotic - Neurological Exam Neurological exam: Present: CN II-XII intact, oriented X3, no focal deficits. Absent: pronater drift, facial droop, speech deficit - Skin Skin exam: Present: dry, intact Internal Medicine: Result - Labs CBC & Chem 7: 08/12/17 02:54 08/12/17 02:54 Labs: Short CBC 08/12/17 Range/Units 02:54 WBC 7.4 (4.3-11.1) K/mcL Hgb 10.5 L (11.5-15.4) g/dL Hct 30.5 L (35.3-44.9) % Plt Count 228 (140-400) K/mcL Neutrophils # 6.5 (1.6-8.9) K/mcL BMP 08/12/17 02:54 Sodium 139 Potassium 3.3 L Chloride 101 Carbon Dioxide 26 BUN 20 Creatinine 0.69 Glucose 305 H Calcium 9.0 Cardiac Enzymes 08/11/17 08/12/17 Range/Units 19:03 01:09 Troponin I 0.05 H* 0.04 H* (< 0.04) ng/mL - ABG Interpretation ABG results: PT/INR, D-dimer PT 15.0 Seconds (9.4-12.1) H 08/11/17 12:49 Consult Discharge Plan - Plan Referrals: Harriet Lama MD [Primary Care Provider] -
[2017-08-12] MEDS: Diltiazem CD (24hr) 120 MG CAPSULE PO SCH (16:07)
[2017-08-12] MEDS: predniSONE 20 MG TABLET PO SCH (16:09)
[2017-08-12] MEDS ORDERED: OLANZapine 10 MG VIAL IM STA (23:07)
[2017-08-13] MEDS ORDERED: *HR* LORazepam 2 MG/ML VIAL IVP ONE (01:05)
--- NOTE | 2017-08-13 01:14 | Event Note ---
<Froylan Casanova - Last Filed: 08/13/17 01:08> Date of Encounter: 08/13/17 Time of Encounter: 01:00 Called into room at 00:40. Patient is pulling out her IV lines and bleeding into her sheets. Per nurse, she was confused and delirious. Dr. Smith at bedside and patient is AOx3 and answers questions appropriately. She continues to be agitated. Give 0.5mg IVP Ativan once. Continue to reassess periodically for mental status. <Lion Smith - Last Filed: 08/13/17 01:18> Date of Encounter: 08/13/17 I saw patient with resident. She is A&O x 3. However, nurse feels patient is getting agitated and is a danger to herself. I have given small dose of zyprexa earlier this evening. Will try low dose ativan 0.5 mg IV once to try to help her sleep. If not, we may need a sitter. I don't want to sedate her too much given her age and medical issues, especially respiratory. Lion Smith MD
[2017-08-13] MEDS: Ipratropium/Albuterol Neb 3 ML IH SCH ×6 (03:24→23:01)
[2017-08-13 03:30] LABS: Basophils % 0.1 %; Hematocrit 29.5 % (35.3-44.9); Hemoglobin 9.6 g/dL (11.5-15.4); Immature Granulocytes % 0.5 % (0-4); Lymphocytes # 0.5 K/mcL (0.6-4.6); Lymphocytes % 3.8 %; Mean Corpuscular HGB Conc 32.5 g/dL (31.6-35.5); Mean Corpuscular Hemoglobin 29.7 pg (28.0-33.3); Mean Corpuscular Volume 91.3 fL (83.0-100.0); Mean Platelet Volume 11.3 fL (9.4-12.4); Monocytes # 0.5 K/mcL (0.0-1.3); Monocytes % 3.6 %; Neutrophils # 12.7 K/mcL (1.6-8.9); Platelet Count 246 K/mcL (140-400); Red Blood Count 3.23 M/mcL (3.82-4.97)
[2017-08-13 03:48] LABS: BUN/Creatinine Ratio 35 (6-26); Blood Urea Nitrogen 36 mg/dL (8-23); Calcium 9.4 mg/dL (8.6-10.3); Carbon Dioxide 26 mEq/L (23-29); Chloride 98 mEq/L (98-107); Glucose 482 mg/dL (70-105); Magnesium 2.2 mg/dL (1.6-2.6); Osmolality,Calculated 310 (280-300); Potassium 3.6 mEq/L (3.5-5.1); Sodium 135 mEq/L (136-145); eGFR For African Americans > 60 (> 60); eGFR For Non-African Americans 50 (> 60)
[2017-08-13] MEDS: Heparin 25,000 UNIT/500 ML D5W 25,000 UNIT/500 ML BAG IVC SCH (05:11)
[2017-08-13] MEDS: Diltiazem CD (24hr) 120 MG CAPSULE PO SCH (06:58)
[2017-08-13] MEDS: Aspirin Enteric Coated 81 MG Tablet PO SCH (07:41)
[2017-08-13] MEDS: Metoprolol 100 MG TABLET PO SCH ×2 (07:41→20:42)
[2017-08-13] MEDS: predniSONE 20 MG TABLET PO SCH (07:41)
[2017-08-13] MEDS: Multivit/Ca/Min/Fe/FA 1 TAB TABLET PO SCH (07:41)
[2017-08-13] MEDS: methIMAzole 5 MG TABLET PO SCH ×3 (07:42→20:42)
[2017-08-13] MEDS: Insulin LISPRO 300 UNITS/3 ML VIAL SQ SCH ×4 (07:42→20:43)
[2017-08-13] MEDS: Insulin DETEMIR 100 UNIT/ML X5UNITS SQ SCH ×3 (09:30→20:42)
[2017-08-13] MEDS: *HR* Rivaroxaban 15 MG TABLET PO SCH ×2 (11:52→20:42)
--- NOTE | 2017-08-13 13:42 | Internal Med Progress Note ---
Date of Encounter: 08/13/17 Time of Encounter: 10:45 - Assessment and plan (1) Hyperthyroidism Current Visit: Yes Status: Acute Assessment and plan: New diagnosis. TSH noted to be very low with elevated free T4 and free T3. Continue by mouth methimazole and monitor TSH. thyroid ultrasound reviewed- no e /o- nodules, heterogeneous thyroid gland;. (2) Atrial fibrillation with RVR Current Visit: Yes Status: Ruled-out (3) Acute exacerbation of chronic obstructive airways disease Current Visit: Yes Status: Acute Assessment and plan: Improving. No known history of COPD. Needs pulmonary function testing as outpatient. Continue by mouth prednisone. Continue when necessary breathing treatments and supplemental oxygen as needed. (4) Pulmonary embolism Current Visit: Yes Status: Acute Assessment and plan: CT angiogram of chest shows left-sided subsegmental pulmonary embolism. B/L LE venous Doppler negative for DVT. Echocardiogram shows preserved EF, mild- moderate pHTN, mild LV diastolic dysfunction. Will change anticoagulation to PO Xarelto 15mg BID; randall check completed, patient can afford medication; continue supplemental O2 and supportive care; Qualifiers: Pulmonary embolism type: other Chronicity: acute Acute cor pulmonale presence: without acute cor pulmonale Qualified Code(s): I26.99 - Other pulmonary embolism without acute cor pulmonale (5) CAD (coronary artery disease) Current Visit: Yes Status: Chronic Qualifiers: Coronary Disease-Associated Artery/Lesion type: bypass graft [place] vs. transplanted heart: [place] heart Associated angina: without angina Qualified Code(s): I25.810 - Atherosclerosis of coronary artery bypass graft(s) without angina pectoris (6) HTN (hypertension) Current Visit: Yes Status: Chronic Qualifiers: Hypertension type: essential hypertension Qualified Code(s): I10 - Essential (primary) hypertension (7) Hyperlipidemia Current Visit: Yes Status: Chronic Qualifiers: Hyperlipidemia type: unspecified Qualified Code(s): E78.5 - Hyperlipidemia , unspecified (8) Diabetes mellitus Current Visit: Yes Status: Chronic Assessment and plan: Blood sugars continue to remain very elevated despite chaging steroids to PO Prednisone. start basal insulin, continue sliding scale insulin, continue Accu- Chek blood glucose monitoring. check HbA1C. Diabetic diet. Qualifiers: Diabetes mellitus type: type 2 Diabetes mellitus alf insulin use: without alf use Diabetes mellitus complication status: with hyperglycemia Qualified Code(s): E11.65 - Type 2 diabetes mellitus with hyperglycemia - Time Spent With Patient Total time spent is greater than 50% in coordination of care (as documented) at patient's floor/unit and/or counseling patient: - Subjective Interval history: Patient had delirium and confusion overnight, tried to pull out IV lines, and received Geodon and IV Ativan; currently very drowsy; d/w daughter at bedside, explained plan of care; HR improved today; on IV Heparin drip; - Constitutional Vitals: Temp Pulse Resp BP Pulse Ox 98.4 F 89 16 116/66 97 08/13/17 10:58 08/13/17 10:58 08/13/17 11:47 08/13/17 11:47 08/13/17 11:47 General appearance: Present: A&O X 1 (somnolent). Absent: answers questions appropriately - Respiratory Respiratory exam: Present: CTAB. Absent: accessory muscle use, rales, rhonchi, wheezes - Cardiovascular Cardiovascular exam: Present: RRR, +S1, +S2. Absent: diastolic murmur, gallop, rubs, systolic murmur - GI/Abdominal GI/Abdominal exam: Present: normal bowel sounds, soft (obese), no peritoneal signs. Absent: distended, tenderness - Extremities Exam Extremities exam: Present: full ROM, pedal edema (1+ pitting pedal edema B/L), warm, radial pulses palpable and symmetrical. Absent: calf tenderness, cyanotic - Neurological Exam Neurological exam: Present: CN II-XII intact, oriented X3, no focal deficits. Absent: pronater drift, facial droop, speech deficit Internal Medicine: Result - Labs CBC & Chem 7: 08/13/17 02:33 08/13/17 02:33 Labs: Short CBC 08/13/17 Range/Units 02:33 WBC 13.8 H D (4.3-11.1) K/mcL Hgb 9.6 L (11.5-15.4) g/dL Hct 29.5 L (35.3-44.9) % Plt Count 246 (140-400) K/mcL Neutrophils # 12.7 H (1.6-8.9) K/mcL BMP 08/13/17 02:33 Sodium 135 L Potassium 3.6 Chloride 98 Carbon Dioxide 26 BUN 36 H Creatinine 1.04 Glucose 482 H Calcium 9.4 - ABG Interpretation ABG results: PT/INR, D-dimer PT 15.0 Seconds (9.4-12.1) H 08/11/17 12:49 - Impressions Impressions Echocardiogram 08/12/17 12:44 Impressions: LVEF 60-65%. Normal LV chamber size, wall thickness and function. Atypical septal motion consistent with post-operative status. Mild left ventricular diastolic dysfunction. Normal right ventricular structure and function. Mild aortic sclerosis suggested by Doppler. Mean gradient 12 mmHg. Mild tricuspid regurgitation. Mild to moderate pulmonary hypertension. Estimated RVSP 45 mmHg. Left Ventricular Wall Motion: Rest Echo Findings All wall segments showed normal motion. Findings: Study Quality * Technically adequate exam. ECG Findings * Normal sinus rhythm. Left Ventricle * LVEF 60-65%. * Normal LV chamber size, wall thickness and function. * Atypical septal motion consistent with post-operative status. * Mild left ventricular diastolic dysfunction. Right Ventricle * Normal right ventricular structure and function. Left Atrium * Moderate to severely dilated left atrium. Right Atrium * Mild to moderately dilated right atrium. Aortic Valve * Aortic valve not well visualized. * Mild aortic sclerosis suggested by Doppler. Mean gradient 12 mmHg. * No aortic regurgitation. Mitral Valve * Mild mitral annular calcification * Trace mitral regurgitation. * No mitral stenosis. Tricuspid Valve * Normal tricuspid valve structure. * Mild tricuspid regurgitation. * Mild to moderate pulmonary hypertension. Estimated RVSP 45 mmHg. Pulmonic Valve * Pulmonic valve is not well visualized. * No pulmonic regurgitation. Aorta * Normally sized aortic root. Pericardium * The pericardium appears normal. IVC * Normal IVC dimensions and inspiratory collapse. Pulmonary Artery * Normal visualized portions of the main pulmonary artery. Thyroid Ultrasound 08/12/17 19:00 IMPRESSION: Heterogeneous thyroid gland, without convincing evidence of thyroid nodule. D/ / 08/12/2017 22:39:54 Danny Reis MD / joel Interpreting Provider: Danny Reis MD Consult Discharge Plan - Plan Referrals: Harriet Lama MD [Primary Care Provider] -
[2017-08-14] MEDS ORDERED: Haloperidol Oral Conc 10 MG/5 ML UDC PO PRN (01:50)
[2017-08-14] MEDS: Ipratropium/Albuterol Neb 3 ML IH SCH ×6 (03:24→23:36)
[2017-08-14 06:13] LABS: Basophils % 0.1 %; Eosinophils % 0.1 %; Hematocrit 30.5 % (35.3-44.9); Hemoglobin 10.3 g/dL (11.5-15.4); Immature Granulocytes % 0.9 % (0-4); Lymphocytes # 2.2 K/mcL (0.6-4.6); Lymphocytes % 14.4 %; Mean Corpuscular HGB Conc 33.8 g/dL (31.6-35.5); Mean Corpuscular Hemoglobin 30.8 pg (28.0-33.3); Mean Corpuscular Volume 91.3 fL (83.0-100.0); Mean Platelet Volume 11.1 fL (9.4-12.4); Monocytes # 0.8 K/mcL (0.0-1.3); Monocytes % 5.2 %; Neutrophils # 11.9 K/mcL (1.6-8.9); Platelet Count 267 K/mcL (140-400); Red Blood Count 3.34 M/mcL (3.82-4.97); Red Cell Distribution Width 14.2 % (11.5-14.5); Segmented Neutrophils % 79.3 %
[2017-08-14 06:31] LABS: Calcium 10.1 mg/dL (8.6-10.3); Potassium 4.2 mEq/L (3.5-5.1)
[2017-08-14] MEDS: Multivit/Ca/Min/Fe/FA 1 TAB TABLET PO SCH (08:33)
[2017-08-14] MEDS: Diltiazem CD (24hr) 180 MG CAPSULE PO SCH (08:33)
[2017-08-14] MEDS: Metoprolol 100 MG TABLET PO SCH ×2 (08:33→20:49)
[2017-08-14] MEDS: *HR* Rivaroxaban 15 MG TABLET PO SCH ×2 (08:33→20:49)
[2017-08-14] MEDS: Aspirin Enteric Coated 81 MG Tablet PO SCH (08:33)
[2017-08-14] MEDS: methIMAzole 5 MG TABLET PO SCH ×3 (08:33→20:49)
[2017-08-14] MEDS: predniSONE 20 MG TABLET PO SCH (08:33)
[2017-08-14] MEDS: Insulin DETEMIR 100 UNIT/ML X5UNITS SQ SCH ×2 (08:34→20:49)
[2017-08-14] MEDS: Insulin LISPRO 300 UNITS/3 ML VIAL SQ SCH ×4 (08:34→20:49)
[2017-08-14 12:53] LABS: Estimated Average Glucose 192 mg/dl; Hemoglobin A1C 8.3 %
--- NOTE | 2017-08-14 13:44 | Internal Med Progress Note ---
Date of Encounter: 08/14/17 Time of Encounter: 10:00 - Assessment and plan (1) Acute encephalopathy Current Visit: Yes Status: Acute Assessment and plan: delirium and metabolic encephalopathy due to sundowning, elderly age and receiving Haldol and Ativan; continue supportive care; (2) Hyperthyroidism Current Visit: Yes Status: Acute Assessment and plan: New diagnosis. TSH noted to be very low with elevated free T4 and free T3. Continue by mouth methimazole and monitor TSH. thyroid ultrasound reviewed- no e /o- nodules, heterogeneous thyroid gland;. (3) Atrial fibrillation with RVR Current Visit: Yes Status: Ruled-out (4) Acute exacerbation of chronic obstructive airways disease Current Visit: Yes Status: Acute Assessment and plan: Improving. No known history of COPD. Needs pulmonary function testing as outpatient. Continue by mouth prednisone. Continue when necessary breathing treatments and supplemental oxygen as needed. (5) Pulmonary embolism Current Visit: Yes Status: Acute Assessment and plan: CT angiogram of chest shows left-sided subsegmental pulmonary embolism. B/L LE venous Doppler negative for DVT. Echocardiogram shows preserved EF, mild- moderate pHTN, mild LV diastolic dysfunction. Continue PO Xarelto 15mg BID; randall check completed, patient can afford medication; continue supplemental O2 and supportive care; requires 2L/min via [place] ; PT/OT evaluation pending; Qualifiers: Pulmonary embolism type: other Chronicity: acute Acute cor pulmonale presence: without acute cor pulmonale Qualified Code(s): I26.99 - Other pulmonary embolism without acute cor pulmonale (6) CAD (coronary artery disease) Current Visit: Yes Status: Chronic Qualifiers: Coronary Disease-Associated Artery/Lesion type: bypass graft [place] vs. transplanted heart: [place] heart Associated angina: without angina Qualified Code(s): I25.810 - Atherosclerosis of coronary artery bypass graft(s) without angina pectoris (7) HTN (hypertension) Current Visit: Yes Status: Chronic Assessment and plan: BP well-controlled; continue current meds; Qualifiers: Hypertension type: essential hypertension Qualified Code(s): I10 - Essential (primary) hypertension (8) Hyperlipidemia Current Visit: Yes Status: Chronic Qualifiers: Hyperlipidemia type: unspecified Qualified Code(s): E78.5 - Hyperlipidemia , unspecified (9) Diabetes mellitus Current Visit: Yes Status: Chronic Assessment and plan: Blood sugars improving today; will decrease basal insulin, continue sliding scale insulin, continue Accu-Chek blood glucose monitoring. HbA1C 8.3%. Diabetic diet. Qualifiers: Diabetes mellitus type: type 2 Diabetes mellitus correction insulin use: without moth exterminator use Diabetes mellitus complication status: with hyperglycemia Qualified Code(s): E11.65 - Type 2 diabetes mellitus with hyperglycemia (10) Morbid obesity Current Visit: Yes Status: Chronic - Time Spent With Patient Total time spent is greater than 50% in coordination of care (as documented) at patient's floor/unit and/or counseling patient: - Subjective Interval history: Patient continues to be disoriented and very drowsy; per RN, she received Haldol last night due to agitation and confusion; was more awake this am and had her breakfast; improving HR; - Constitutional Vitals: Temp Pulse Resp BP Pulse Ox 97.5 F L 75 17 137/59 96 08/14/17 12:05 08/14/17 12:05 08/14/17 12:05 08/14/17 12:05 08/14/17 12:05 General appearance: Present: A&O X 1 (somnolent, disoriented to place). Absent : answers questions appropriately - Respiratory Respiratory exam: Present: CTAB (anterolaterally). Absent: accessory muscle use , rales, rhonchi, wheezes - Cardiovascular Cardiovascular exam: Present: RRR, +S1, +S2. Absent: diastolic murmur, gallop, rubs, systolic murmur - GI/Abdominal GI/Abdominal exam: Present: normal bowel sounds, soft (obese), no peritoneal signs. Absent: distended, tenderness - Extremities Exam Extremities exam: Present: pedal edema (1+ pitting pedal edema), warm, radial pulses palpable and symmetrical. Absent: calf tenderness, cyanotic - Neurological Exam Neurological exam: Present: altered, no focal deficits. Absent: pronater drift , facial droop, speech deficit Internal Medicine: Result - Labs CBC & Chem 7: 08/14/17 05:52 08/14/17 05:52 Labs: Short CBC 08/14/17 Range/Units 05:52 WBC 15.0 H (4.3-11.1) K/mcL Hgb 10.3 L (11.5-15.4) g/dL Hct 30.5 L (35.3-44.9) % Plt Count 267 (140-400) K/mcL Neutrophils # 11.9 H (1.6-8.9) K/mcL BMP 08/14/17 05:52 Sodium 139 Potassium 4.2 Chloride 101 Carbon Dioxide 32 H BUN 46 H Creatinine 1.13 Glucose 252 H Calcium 10.1 - ABG Interpretation ABG results: PT/INR, D-dimer PT 15.0 Seconds (9.4-12.1) H 08/11/17 12:49 - Impressions Impressions Thyroid Ultrasound 08/12/17 19:00 IMPRESSION: Heterogeneous thyroid gland, without convincing evidence of thyroid nodule. D/ / 08/12/2017 22:39:54 Danny Reis MD / joel Interpreting Provider: Danny Reis MD Consult Discharge Plan - Plan Referrals: Harriet Lama MD [Primary Care Provider] -
[2017-08-14] MEDS ORDERED: Insulin DETEMIR 100 UNIT/ML X5UNITS SQ SCH (14:00)
[2017-08-14 17:45] LABS: Bilirubin,Urine Negative (Negative); Blood,Urine Negative (Negative); Clarity,Urine Cloudy (Clear); Color,Urine Yellow (Yellow); Glucose,Urine (UA) 100 mg/dL (Normal); Ketones,Urine Negative (Negative); Leukocyte Esterase,Urine Moderate (Negative); Nitrite,Urine Negative (Negative); PH,Urine 5.5 pH Units (5.0-8.0); Protein,Urine Negative (Neg-Trace); Specific Gravity,Urine 1.024 (1.010-1.025); Urobilinogen,Urine Normal (Normal)
[2017-08-14 17:47] LABS: Bacteria,Urine None Seen per hpf (None-Few); Hyaline Casts,Urine None Seen per lpf (None-Few); RBC,Urine 0-3 per hpf (0-3); Squamous Epithelial Cell,Urine Many per lpf (None-Few); WBC,Urine 30-50 per hpf (0-3)
[2017-08-15] MEDS: Ipratropium/Albuterol Neb 3 ML IH SCH ×6 (04:15→23:21)
[2017-08-15 06:53] LABS: Basophils % 0.1 %; Eosinophils # 0.1 K/mcL (0.0-0.6); Eosinophils % 0.6 %; Hematocrit 32.9 % (35.3-44.9); Hemoglobin 10.6 g/dL (11.5-15.4); Immature Granulocytes % 0.4 % (0-4); Lymphocytes # 2.6 K/mcL (0.6-4.6); Mean Corpuscular HGB Conc 32.2 g/dL (31.6-35.5); Mean Corpuscular Hemoglobin 30.6 pg (28.0-33.3); Mean Corpuscular Volume 95.1 fL (83.0-100.0); Mean Platelet Volume 11.7 fL (9.4-12.4); Monocytes # 0.8 K/mcL (0.0-1.3); Monocytes % 7.2 %; Neutrophils # 8.1 K/mcL (1.6-8.9); Platelet Count 285 K/mcL (140-400); Red Blood Count 3.46 M/mcL (3.82-4.97); Red Cell Distribution Width 14.4 % (11.5-14.5); Segmented Neutrophils % 69.7 %
[2017-08-15] MEDS: Aspirin Enteric Coated 81 MG Tablet PO SCH (07:58)
[2017-08-15] MEDS: predniSONE 20 MG TABLET PO SCH (07:58)
[2017-08-15] MEDS: Diltiazem CD (24hr) 180 MG CAPSULE PO SCH (07:58)
[2017-08-15] MEDS: methIMAzole 5 MG TABLET PO SCH ×3 (07:59→21:10)
[2017-08-15] MEDS: Insulin DETEMIR 100 UNIT/ML X5UNITS SQ SCH ×2 (07:59→21:11)
[2017-08-15] MEDS: Metoprolol 100 MG TABLET PO SCH ×2 (07:59→21:10)
[2017-08-15] MEDS: *HR* Rivaroxaban 15 MG TABLET PO SCH ×2 (07:59→21:10)
[2017-08-15] MEDS: Multivit/Ca/Min/Fe/FA 1 TAB TABLET PO SCH (07:59)
[2017-08-15] MEDS: Insulin LISPRO 300 UNITS/3 ML VIAL SQ SCH ×4 (08:00→21:11)
--- NOTE | 2017-08-15 13:59 | Internal Med Progress Note ---
Date of Encounter: 08/15/17 Time of Encounter: 10:45 - Assessment and plan (1) Acute encephalopathy Current Visit: Yes Status: Resolved Assessment and plan: delirium and metabolic encephalopathy due to sundowning, elderly age and receiving Haldol and Ativan; now at baseline; (2) Hyperthyroidism Current Visit: Yes Status: Acute Assessment and plan: New diagnosis. TSH noted to be very low with elevated free T4 and free T3. Continue by mouth methimazole and monitor TSH. thyroid ultrasound reviewed- no e /o- nodules, heterogeneous thyroid gland;. HR better controlled; (3) Atrial fibrillation with RVR Current Visit: Yes Status: Ruled-out (4) Acute exacerbation of chronic obstructive airways disease Current Visit: Yes Status: Acute Assessment and plan: Improving. No known history of COPD. Needs pulmonary function testing as outpatient. Will complete a 5-day course of PO Prednsione tomorrow. Continue when necessary breathing treatments and supplemental oxygen as needed. Continues to require 2L/min via [place] intermittently; will need a 6-min walk test prior to discharge; (5) Pulmonary embolism Current Visit: Yes Status: Acute Assessment and plan: CT angiogram of chest shows left-sided subsegmental pulmonary embolism. B/L LE venous Doppler negative for DVT. Echocardiogram shows preserved EF, mild- moderate pHTN, mild LV diastolic dysfunction. Continue PO Xarelto 15mg BID; continue supplemental O2 and supportive care; requires 2L/min via [place]; PT/OT evaluation noted, recommends ECF placement; will consult social services manager; Qualifiers: Pulmonary embolism type: other Chronicity: acute Acute cor pulmonale presence: without acute cor pulmonale Qualified Code(s): I26.99 - Other pulmonary embolism without acute cor pulmonale (6) CAD (coronary artery disease) Current Visit: Yes Status: Chronic Qualifiers: Coronary Disease-Associated Artery/Lesion type: bypass graft [place] vs. transplanted heart: [place] heart Associated angina: without angina Qualified Code(s): I25.810 - Atherosclerosis of coronary artery bypass graft(s) without angina pectoris (7) HTN (hypertension) Current Visit: Yes Status: Chronic Qualifiers: Hypertension type: essential hypertension Qualified Code(s): I10 - Essential (primary) hypertension (8) Hyperlipidemia Current Visit: Yes Status: Chronic Qualifiers: Hyperlipidemia type: unspecified Qualified Code(s): E78.5 - Hyperlipidemia , unspecified (9) Diabetes mellitus Current Visit: Yes Status: Chronic Assessment and plan: Blood sugars are improving with a few readings in 200s; continue basal and sliding scale insulin, continue Accu-Chek blood glucose monitoring. HbA1C 8.3%. Diabetic diet. Qualifiers: Diabetes mellitus type: type 2 Diabetes mellitus [facility] insulin use: without [facility] use Diabetes mellitus complication status: with hyperglycemia Qualified Code(s): E11.65 - Type 2 diabetes mellitus with hyperglycemia (10) Morbid obesity Current Visit: Yes Status: Chronic (11) CKD (chronic kidney disease), stage III Current Visit: Yes Status: Chronic Assessment and plan: likely related to age, HTN, DM; GFR noted to be around 50, at baseline; monitor creatinine closely as she has been started on Xarelto; - Time Spent With Patient Total time spent is greater than 50% in coordination of care (as documented) at patient's floor/unit and/or counseling patient: - Subjective Interval history: Patient is improved today, awake and oriented; denies chest pain, palpitations, shortness of breath; awaiting PT/OT; continues to have leg swelling; - Constitutional Vitals: Temp Pulse Resp BP Pulse Ox 97.9 F 80 17 122/70 97 08/15/17 11:51 08/15/17 11:51 08/15/17 11:51 08/15/17 11:51 08/15/17 11:51 General appearance: Present: A&O X 2, morbidly obese, answers questions appropriately - Respiratory Respiratory exam: Present: CTAB. Absent: accessory muscle use, rales, rhonchi, wheezes - Cardiovascular Cardiovascular exam: Present: RRR, +S1, +S2. Absent: diastolic murmur, gallop, rubs, systolic murmur - GI/Abdominal GI/Abdominal exam: Present: normal bowel sounds, soft (obese), no peritoneal signs. Absent: distended, tenderness - Extremities Exam Extremities exam: Present: full ROM, pedal edema (2+ pitting), warm, radial pulses palpable and symmetrical. Absent: calf tenderness, cyanotic - Neurological Exam Neurological exam: Present: CN II-XII intact, oriented X3, no focal deficits. Absent: pronater drift, facial droop, speech deficit Internal Medicine: Result - Labs CBC & Chem 7: 08/15/17 05:25 08/15/17 05:25 Labs: Short CBC 08/15/17 Range/Units 05:25 WBC 11.7 H (4.3-11.1) K/mcL Hgb 10.6 L (11.5-15.4) g/dL Hct 32.9 L (35.3-44.9) % Plt Count 285 (140-400) K/mcL Neutrophils # 8.1 (1.6-8.9) K/mcL BMP 08/15/17 05:25 Sodium 141 Potassium 5.0 Chloride 102 Carbon Dioxide 32 H BUN 45 H Creatinine 1.12 Glucose 159 H Calcium 10.0 Urine 08/14/17 Range/Units 17:20 Urine Color Yellow (Yellow) Urine Clarity Cloudy A (Clear) Urine pH 5.5 (5.0-8.0) pH Units Ur Specific [place] 1.024 (1.010-1.025) Urine Protein Negative (Neg-Trace) mg/dL Urine Glucose (UA) 100 H (Normal) mg/dL - ABG Interpretation ABG results: PT/INR, D-dimer PT 15.0 Seconds (9.4-12.1) H 08/11/17 12:49 Consult Discharge Plan - Plan Referrals: Harriet Lama MD [Primary Care Provider] - (web request 08/14/2017) Prescriptions: Rivaroxaban [Xarelto] 15 mg PO BID #23 tablet Rivaroxaban [Xarelto] 20 mg PO DAILY #30 tablet
[2017-08-16] MEDS: Ipratropium/Albuterol Neb 3 ML IH SCH ×5 (03:19→20:09)
[2017-08-16 06:53] LABS: BUN/Creatinine Ratio 46 (6-26); Blood Urea Nitrogen 39 mg/dL (8-23); Calcium 9.7 mg/dL (8.6-10.3); Carbon Dioxide 30 mEq/L (23-29); Chloride 104 mEq/L (98-107); Glucose 107 mg/dL (70-105); Osmolality,Calculated 304 (280-300); Potassium 4.4 mEq/L (3.5-5.1); Sodium 142 mEq/L (136-145); eGFR For African Americans > 60 (> 60); eGFR For Non-African Americans > 60 (> 60)
[2017-08-16] MEDS: *HR* Rivaroxaban 15 MG TABLET PO SCH ×2 (07:57→20:40)
[2017-08-16] MEDS: methIMAzole 5 MG TABLET PO SCH ×3 (07:58→20:40)
[2017-08-16] MEDS: Aspirin Enteric Coated 81 MG Tablet PO SCH (07:58)
[2017-08-16] MEDS: Metoprolol 100 MG TABLET PO SCH ×2 (07:58→20:40)
[2017-08-16] MEDS: Multivit/Ca/Min/Fe/FA 1 TAB TABLET PO SCH (07:58)
[2017-08-16] MEDS: predniSONE 20 MG TABLET PO SCH (07:58)
[2017-08-16] MEDS: Diltiazem CD (24hr) 180 MG CAPSULE PO SCH (07:58)
[2017-08-16] MEDS: Insulin DETEMIR 100 UNIT/ML X5UNITS SQ SCH ×2 (08:01→20:40)
[2017-08-16] MEDS: Insulin LISPRO 300 UNITS/3 ML VIAL SQ SCH ×4 (11:54→20:40)
--- NOTE | 2017-08-16 17:22 | Internal Med Progress Note ---
Date of Encounter: 08/16/17 Time of Encounter: 11:00 - Assessment and plan (1) Acute encephalopathy Current Visit: Yes Status: Resolved Assessment and plan: Suspect delirium and metabolic encephalopathy due to sundowning, elderly age Will discontinue Ativan but will give Haldol as needed (2) Pulmonary embolism Current Visit: Yes Status: Acute Assessment and plan: CT angiogram of chest shows left-sided subsegmental pulmonary embolism. B/L LE venous Doppler negative for DVT. Echocardiogram shows preserved EF, mild-moderate pHTN, mild LV diastolic dysfunction. Continue PO Xarelto 15mg BID Supplemental oxygenation weaned today and will monitor Qualifiers: Pulmonary embolism type: other Chronicity: acute Acute cor pulmonale presence: without acute cor pulmonale Qualified Code(s): I26.99 - Other pulmonary embolism without acute cor pulmonale (3) CAD (coronary artery disease) Current Visit: Yes Status: Chronic Assessment and plan: CAD status post CABG Stable; continue to monitor Qualifiers: Coronary Disease-Associated Artery/Lesion type: bypass graft [place] vs. transplanted heart: [place] heart Associated angina: without angina Qualified Code(s): I25.810 - Atherosclerosis of coronary artery bypass graft(s) without angina pectoris (4) HTN (hypertension) Current Visit: Yes Status: Chronic Assessment and plan: BP well-controlled; continue current meds; Qualifiers: Hypertension type: essential hypertension Qualified Code(s): I10 - Essential (primary) hypertension (5) Hyperlipidemia Current Visit: Yes Status: Chronic Assessment and plan: Continue statin. Qualifiers: Hyperlipidemia type: unspecified Qualified Code(s): E78.5 - Hyperlipidemia , unspecified (6) Diabetes mellitus Current Visit: Yes Status: Chronic Assessment and plan: Blood glucose controlled; continue basal and sliding scale insulin Qualifiers: Diabetes mellitus type: type 2 Diabetes mellitus jail insulin use: without termite control representative use Diabetes mellitus complication status: with hyperglycemia Qualified Code(s): E11.65 - Type 2 diabetes mellitus with hyperglycemia (7) Hyperthyroidism Current Visit: Yes Status: Acute Assessment and plan: New diagnosis. TSH noted to be very low with elevated free T4 and free T3. Thyroid ultrasound did not show any evidence of nodules, heterogeneous thyroid gland HR better controlled Continue by mouth methimazole and monitor TSH. (8) Morbid obesity Current Visit: Yes Status: Chronic Assessment and plan: BMI 44.6 (9) CKD (chronic kidney disease), stage III Current Visit: Yes Status: Chronic Assessment and plan: Stable; continue to monitor (10) DVT prophylaxis Current Visit: Yes Status: Acute Assessment and plan: Continue Xarelto - Time Spent With Patient Total time spent is greater than 50% in coordination of care (as documented) at patient's floor/unit and/or counseling patient: - Subjective Interval history: Patient with visual/auditory hallucinations suspected secondary to sundowning Patient in no acute respiratory distress this morning and her oxygen has been weaned off; will monitor - Constitutional Vitals: Temp Pulse Resp BP Pulse Ox 97.6 F 87 17 165/85 94 08/16/17 16:26 08/16/17 16:26 08/16/17 16:26 08/16/17 16:26 08/16/17 16:26 General appearance: Present: A&O X 2, A&O X 3, morbidly obese, no acute distress , answers questions appropriately - Respiratory Respiratory exam: Present: CTAB. Absent: accessory muscle use, rales, rhonchi, wheezes - Cardiovascular Cardiovascular exam: Present: RRR, +S1, +S2. Absent: diastolic murmur, gallop, rubs, systolic murmur Internal Medicine: Result - Labs CBC & Chem 7: 08/15/17 05:25 08/16/17 05:32 Labs: BMP 08/16/17 05:32 Sodium 142 Potassium 4.4 Chloride 104 Carbon Dioxide 30 H BUN 39 H Creatinine 0.85 Glucose 107 H Calcium 9.7 - ABG Interpretation ABG results: PT/INR, D-dimer PT 15.0 Seconds (9.4-12.1) H 08/11/17 12:49 Consult Discharge Plan - Plan Referrals: Harriet Lama MD [Primary Care Provider] - 08/24/17 1:45 pm (web request 08/14/2017) Prescriptions: Rivaroxaban [Xarelto] 15 mg PO BID #23 tablet Rivaroxaban [Xarelto] 20 mg PO DAILY #30 tablet
[2017-08-17] MEDS: Ipratropium/Albuterol Neb 3 ML IH SCH ×7 (00:09→23:34)
[2017-08-17] MEDS ORDERED: Haloperidol Lactate 5 MG/ML VIAL IVP ONE ×2 (02:02→21:27)
[2017-08-17] MEDS ORDERED: Haloperidol Lactate 5 MG/ML VIAL ONE ×2 (02:05→21:29)
[2017-08-17] MEDS ORDERED: Isovue-370 500 ML INFUS..BTL IV ONE (10:41)
[2017-08-17] MEDS: Insulin LISPRO 300 UNITS/3 ML VIAL SQ SCH ×4 (10:57→21:53)
[2017-08-17] MEDS: Diltiazem CD (24hr) 180 MG CAPSULE PO SCH (11:01)
[2017-08-17] MEDS: Insulin DETEMIR 100 UNIT/ML X5UNITS SQ SCH (11:01)
[2017-08-17] MEDS: Metoprolol 100 MG TABLET PO SCH ×2 (11:01→21:54)
[2017-08-17] MEDS: *HR* Rivaroxaban 15 MG TABLET PO SCH ×2 (11:02→21:54)
[2017-08-17] MEDS: predniSONE 20 MG TABLET PO SCH (11:02)
[2017-08-17] MEDS: methIMAzole 5 MG TABLET PO SCH ×3 (11:02→21:54)
[2017-08-17] MEDS: Multivit/Ca/Min/Fe/FA 1 TAB TABLET PO SCH (12:34)
[2017-08-17] MEDS: Aspirin Enteric Coated 81 MG Tablet PO SCH (12:34)
--- NOTE | 2017-08-17 18:50 | Internal Med Progress Note ---
Date of Encounter: 08/17/17 Time of Encounter: 11:00 - Assessment and plan (1) Acute encephalopathy Current Visit: Yes Status: Resolved Assessment and plan: Suspect delirium and metabolic encephalopathy due to sundowning, elderly age Will discontinue Ativan but will give Haldol as needed CT of the head showed no acute findings Will monitor overnight with sitter (2) Pulmonary embolism Current Visit: Yes Status: Acute Assessment and plan: CT angiogram of chest shows left-sided subsegmental pulmonary embolism. B/L LE venous Doppler negative for DVT. Echocardiogram shows preserved EF, mild-moderate pHTN, mild LV diastolic dysfunction. Continue PO Xarelto 15mg BID Supplemental oxygenation has been weaned off Qualifiers: Pulmonary embolism type: other Chronicity: acute Acute cor pulmonale presence: without acute cor pulmonale Qualified Code(s): I26.99 - Other pulmonary embolism without acute cor pulmonale (3) CAD (coronary artery disease) Current Visit: Yes Status: Chronic Assessment and plan: CAD status post CABG Stable; continue to monitor Qualifiers: Coronary Disease-Associated Artery/Lesion type: bypass graft [place] vs. transplanted heart: [place] heart Associated angina: without angina Qualified Code(s): I25.810 - Atherosclerosis of coronary artery bypass graft(s) without angina pectoris (4) HTN (hypertension) Current Visit: Yes Status: Chronic Assessment and plan: BP well-controlled; continue current meds; Qualifiers: Hypertension type: essential hypertension Qualified Code(s): I10 - Essential (primary) hypertension (5) Hyperlipidemia Current Visit: Yes Status: Chronic Assessment and plan: Continue statin. Qualifiers: Hyperlipidemia type: unspecified Qualified Code(s): E78.5 - Hyperlipidemia , unspecified (6) Diabetes mellitus Current Visit: Yes Status: Chronic Assessment and plan: Blood glucose controlled; continue basal and sliding scale insulin Qualifiers: Diabetes mellitus type: type 2 Diabetes mellitus assisted insulin use: without termite technician use Diabetes mellitus complication status: with hyperglycemia Qualified Code(s): E11.65 - Type 2 diabetes mellitus with hyperglycemia (7) Hyperthyroidism Current Visit: Yes Status: Acute Assessment and plan: New diagnosis. TSH noted to be very low with elevated free T4 and free T3. Thyroid ultrasound did not show any evidence of nodules, heterogeneous thyroid gland HR better controlled Continue by mouth methimazole and monitor TSH. (8) Morbid obesity Current Visit: Yes Status: Chronic Assessment and plan: BMI 44.6 (9) CKD (chronic kidney disease), stage III Current Visit: Yes Status: Chronic Assessment and plan: Stable; continue to monitor (10) DVT prophylaxis Current Visit: Yes Status: Acute Assessment and plan: Continue Xarelto - Time Spent With Patient Total time spent is greater than 50% in coordination of care (as documented) at patient's floor/unit and/or counseling patient: - Subjective Interval history: Patient is alert and oriented 3 however his confrontational suspect secondary to injuring of underlining dementia Family does admit that patient has had a prior episode several months ago where she was evaluated with imaging of the brain with negative findings Patient in no acute respiratory distress this morning and it has been weaned off oxygenation - Constitutional Vitals: Temp Pulse Resp BP Pulse Ox 97.6 F 90 17 137/73 93 08/17/17 16:04 08/17/17 16:04 08/17/17 16:04 08/17/17 16:04 08/17/17 16:04 General appearance: Present: A&O X 2, A&O X 3, morbidly obese, no acute distress , answers questions appropriately - Respiratory Respiratory exam: Present: CTAB. Absent: accessory muscle use, rales, rhonchi, wheezes - Cardiovascular Cardiovascular exam: Present: RRR, +S1, +S2. Absent: diastolic murmur, gallop, rubs, systolic murmur Internal Medicine: Result - Labs CBC & Chem 7: 08/15/17 05:25 08/16/17 05:32 - ABG Interpretation ABG results: PT/INR, D-dimer PT 15.0 Seconds (9.4-12.1) H 08/11/17 12:49 - Impressions Impressions Head CT 08/17/17 10:42 IMPRESSION: No acute intracranial abnormality. Age related changes including chronic small vessel ischemic disease and cerebral atrophy. D/ / Consuelo Guy MD / Consuelo Guy MD Interpreting Provider: Consuelo Guy MD Consult Discharge Plan - Plan Referrals: Harriet Lama MD [Primary Care Provider] - 08/24/17 1:45 pm (web request 08/14/2017) Prescriptions: Rivaroxaban [Xarelto] 15 mg PO BID #23 tablet Rivaroxaban [Xarelto] 20 mg PO DAILY #30 tablet
[2017-08-18] MEDS: Insulin DETEMIR 100 UNIT/ML X5UNITS SQ SCH ×2 (00:31→12:11)
[2017-08-18] MEDS: Ipratropium/Albuterol Neb 3 ML IH SCH ×3 (03:35→11:13)
[2017-08-18] MEDS: Metoprolol 100 MG TABLET PO SCH (06:35)
[2017-08-18 07:12] LABS: Basophils % 0.2 %; Eosinophils # 0.4 K/mcL (0.0-0.6); Eosinophils % 3.9 %; Hematocrit 36.7 % (35.3-44.9); Immature Granulocytes % 0.6 % (0-4); Lymphocytes # 2.4 K/mcL (0.6-4.6); Lymphocytes % 25.6 %; Mean Corpuscular HGB Conc 33.2 g/dL (31.6-35.5); Mean Corpuscular Hemoglobin 30.7 pg (28.0-33.3); Mean Corpuscular Volume 92.4 fL (83.0-100.0); Mean Platelet Volume 11.6 fL (9.4-12.4); Monocytes # 0.9 K/mcL (0.0-1.3); Monocytes % 9.6 %; Neutrophils # 5.6 K/mcL (1.6-8.9); Platelet Count 304 K/mcL (140-400); Red Blood Count 3.97 M/mcL (3.82-4.97); Red Cell Distribution Width 13.5 % (11.5-14.5); Segmented Neutrophils % 60.1 %
[2017-08-18 07:26] LABS: Alanine Aminotransferase 34 Units/L (7-52); Albumin 3.3 g/dL (3.5-5.7); Alkaline Phosphatase 87 Units/L (34-104); Aspartate Amino Transferase 22 Units/L (13-39); BUN/Creatinine Ratio 37 (6-26); Blood Urea Nitrogen 34 mg/dL (8-23); Calcium 9.8 mg/dL (8.6-10.3); Carbon Dioxide 31 mEq/L (23-29); Chloride 101 mEq/L (98-107); Globulin 3.3 g/dL (2.4-3.5); Glucose 167 mg/dL (70-105); Osmolality,Calculated 301 (280-300); Potassium 4.5 mEq/L (3.5-5.1); Sodium 140 mEq/L (136-145); Total Protein 6.6 g/dL (6.4-8.9); eGFR For African Americans > 60 (> 60); eGFR For Non-African Americans 58 (> 60)
[2017-08-18 09:12] LABS: Hemoglobin 12.2 g/dL (11.5-15.4)
[2017-08-18] MEDS: Insulin LISPRO 300 UNITS/3 ML VIAL SQ SCH ×2 (11:18→12:01)
[2017-08-18 11:28] VITALS: BP 148/63
[2017-08-18] MEDS: Multivit/Ca/Min/Fe/FA 1 TAB TABLET PO SCH (12:01)
[2017-08-18] MEDS: *HR* Rivaroxaban 15 MG TABLET PO SCH (12:01)
[2017-08-18] MEDS: methIMAzole 5 MG TABLET PO SCH (12:01)
[2017-08-18] MEDS: Aspirin Enteric Coated 81 MG Tablet PO SCH (12:01)
[2017-08-18] MEDS: Diltiazem CD (24hr) 180 MG CAPSULE PO SCH (12:10)
--- NOTE | 2017-08-18 14:22 | Discharge Summary ---
- NOTES TO OUTPATIENT PROVIDER Notes to Outpatient Provider: none Orders not resulted at time of discharge: Pending orders 08/19/17 04:00 CBC [Complete Blood Count] [HEME] AM 0400 CMP [Comprehensive Metabolic Panel] AM 0400 Date of Encounter: 08/18/17 Time of Encounter: 11:00 - Discharge Diagnosis (1) Acute encephalopathy Priority: Primary Status: Resolved (2) Pulmonary embolism Priority: Primary Status: Acute Qualifiers: Pulmonary embolism type: other Chronicity: acute Acute cor pulmonale presence: without acute cor pulmonale Qualified Code(s): I26.99 - Other pulmonary embolism without acute cor pulmonale (3) CAD (coronary artery disease) Priority: Secondary Status: Chronic Qualifiers: Coronary Disease-Associated Artery/Lesion type: bypass graft [place] vs. transplanted heart: [place] heart Associated angina: without angina Qualified Code(s): I25.810 - Atherosclerosis of coronary artery bypass graft(s) without angina pectoris (4) HTN (hypertension) Priority: Secondary Status: Chronic Qualifiers: Hypertension type: essential hypertension Qualified Code(s): I10 - Essential (primary) hypertension (5) Hyperlipidemia Priority: Secondary Status: Chronic Qualifiers: Hyperlipidemia type: unspecified Qualified Code(s): E78.5 - Hyperlipidemia , unspecified (6) Diabetes mellitus Priority: Secondary Status: Chronic Qualifiers: Diabetes mellitus type: type 2 Diabetes mellitus half-way insulin use: without buttermilk drier operator use Diabetes mellitus complication status: with hyperglycemia Qualified Code(s): E11.65 - Type 2 diabetes mellitus with hyperglycemia (7) Hyperthyroidism Priority: Secondary Status: Acute (8) Morbid obesity Priority: Secondary Status: Chronic (9) CKD (chronic kidney disease), stage III Priority: Secondary Status: Chronic Hospital course: Patient is an 86-year-old female with past medical history significant for coronary artery disease, atrial fibrillation, chronic kidney disease and hypertension who presents to the ER on 08/11/17 due to shortness of breath. Patient was seen 07/26/17 at urgent care for similar sxs. Patient sent to ER from urgent care due to low O2 sat. Patient was worked up for possible COPD exacerbation but refused admission. Patient was discharged home on Azithromycin and Prednisone. Patient reports never fully getting better and continuing to have SOB, productive cough with clear sputum. She has a sore throat and was diagnosed with Thrush recently by PCP. In the ER, patient was found to have atrial fibrillation with rapid ventricular response. She received Cardizem bolus. CTA of the chest revealed subsegmental PE. Patient was admitted as inpatient for further management for pulmonary embolism. During patients hospital stay she was placed on heparin drip and later deescalated to Xarelto where she was able to be weaned off supplemental oxygenation. Patient is medically stable to be discharged to ECF for continued treatment with OAC. - Time Spent with Patient Total time spent providing and/or coordinating discharge services: Less than 30 minutes - Discharge Medications Prescriptions: Rivaroxaban [Xarelto] 15 mg PO BID #23 tablet Rivaroxaban [Xarelto] 20 mg PO DAILY #30 tablet Home Medications: Aspirin [Adult Aspirin Regimen] 81 mg PO DAILY 08/11/17 [History] Calcium Carbonate [Calcium] 500 mg PO DAILY 08/11/17 [History] Multivitamin [One Daily Essential] 1 tab PO DAILY 08/11/17 [History] Simvastatin [Zocor] 20 mg PO HS 08/11/17 [History] metFORMIN [Glucophage] 500 mg PO DAILY 08/11/17 [History] Rivaroxaban [Xarelto] 15 mg PO BID #23 tablet 08/15/17 [Rx] Rivaroxaban [Xarelto] 20 mg PO DAILY #30 tablet 08/15/17 [Rx] Diltiazem CD (24hr) [Cardizem CD] 180 mg PO DAILY cap.er.24h 08/18/17 [Rx] Insulin DETEMIR [Levemir] 10 unit SQ BID [id number] 08/18/17 [Rx] Metoprolol [Lopressor] 100 mg PO BID tablet 08/18/17 [Rx] methIMAzole [Tapazole] 5 mg PO TID tablet 08/18/17 [Rx] Allergies/Adverse Reactions: 3 Allergy/AdvReac Type Severity Reaction Status Date / Time guaifenesin [From Mucinex] Allergy Rash Verified 08/11/17 10:44 Penicillins [PCN] Allergy Rash Verified 08/11/17 10:44 sulfamethoxazole Allergy Rash Verified 08/11/17 10:44 [From Bactrim] trimethoprim [From Bactrim] Allergy Rash Verified 08/11/17 10:44 chlorine Allergy See Uncoded 08/11/17 10:44 Comments Date of admission: 08/11/17 13:00 Primary care physician: Harriet Lmaa Consults: 08/11/17 13:18 Consult to Cardiology [CONS] Routine Comment: Consulting Provider: Cardiology Rosanna Reason for Consult: new onset of afib Call Completed: Yes 08/13/17 13:49 Consult to Occupational Therapy [CONS] Routine Comment: Evaluate, develop and implement POC Reason for Consult: Generalized weakness, delirium Does patient have active BEDREST order?: No Is patient medically & hemodynamically stable?: Yes Patient assessed for mobility or mobilized this visit?: No Consult to Physical Therapy [CONS] Routine Comment: Evaluate, develop and implement POC Reason for Consult: Generalized weakness, delirium Does patient have active BEDREST order?: No Is patient medically & hemodynamically stable?: Yes Patient assessed for mobility or mobilized this visit?: No 08/15/17 14:05 Consult to [place] Setter [CONS] Routine Reason for SW Consult: ECF placement - Constitutional Vitals: Temp Pulse Resp BP Pulse Ox 97.8 F 85 18 148/63 98 08/18/17 11:00 08/18/17 11:00 08/18/17 11:17 08/18/17 11:00 08/18/17 11:17 General appearance: Present: A&O X 2, A&O X 3, morbidly obese, no acute distress , answers questions appropriately - Respiratory Respiratory exam: Present: CTAB. Absent: accessory muscle use, rales, rhonchi, wheezes - Cardiovascular Cardiovascular exam: Present: RRR, +S1, +S2. Absent: diastolic murmur, gallop, rubs, systolic murmur - Patient Status Disposition: Transfer SNF Condition: Fair - Discharge Instructions Follow Up With: Harriet Lama MD [Primary Care Provider] - 08/24/17 1:45 pm (web request 08/14/2017)
--- NOTE | 2017-08-18 14:23 | Discharge Summary ---
Orders not resulted at time of discharge: Pending orders 08/19/17 04:00 CBC [Complete Blood Count] [HEME] AM 0400 CMP [Comprehensive Metabolic Panel] AM 0400 Date of Encounter: 08/18/17 - Discharge Diagnosis (1) Acute encephalopathy Status: Resolved (2) Pulmonary embolism Status: Acute Qualifiers: Pulmonary embolism type: other Chronicity: acute Acute cor pulmonale presence: without acute cor pulmonale Qualified Code(s): I26.99 - Other pulmonary embolism without acute cor pulmonale (3) CAD (coronary artery disease) Status: Chronic Qualifiers: Coronary Disease-Associated Artery/Lesion type: bypass graft [place] vs. transplanted heart: [place] heart Associated angina: without angina Qualified Code(s): I25.810 - Atherosclerosis of coronary artery bypass graft(s) without angina pectoris (4) HTN (hypertension) Status: Chronic Qualifiers: Hypertension type: essential hypertension Qualified Code(s): I10 - Essential (primary) hypertension (5) Hyperlipidemia Status: Chronic Qualifiers: Hyperlipidemia type: unspecified Qualified Code(s): E78.5 - Hyperlipidemia , unspecified (6) Diabetes mellitus Status: Chronic Qualifiers: Diabetes mellitus type: type 2 Diabetes mellitus computer terminal operator insulin use: without alf use Diabetes mellitus complication status: with hyperglycemia Qualified Code(s): E11.65 - Type 2 diabetes mellitus with hyperglycemia (7) Hyperthyroidism Status: Acute (8) Morbid obesity Status: Chronic (9) CKD (chronic kidney disease), stage III Status: Chronic (10) DVT prophylaxis Status: Acute Hospital course: Ms. Wilkins is a 86 year old female - Time Spent with Patient Total time spent providing and/or coordinating discharge services: - Discharge Medications Prescriptions: Rivaroxaban [Xarelto] 15 mg PO BID #23 tablet Rivaroxaban [Xarelto] 20 mg PO DAILY #30 tablet Home Medications: Aspirin [Adult Aspirin Regimen] 81 mg PO DAILY 08/11/17 [History] Calcium Carbonate [Calcium] 500 mg PO DAILY 08/11/17 [History] Multivitamin [One Daily Essential] 1 tab PO DAILY 08/11/17 [History] Simvastatin [Zocor] 20 mg PO HS 08/11/17 [History] metFORMIN [Glucophage] 500 mg PO DAILY 08/11/17 [History] Rivaroxaban [Xarelto] 15 mg PO BID #23 tablet 08/15/17 [Rx] Rivaroxaban [Xarelto] 20 mg PO DAILY #30 tablet 08/15/17 [Rx] Diltiazem CD (24hr) [Cardizem CD] 180 mg PO DAILY cap.er.24h 08/18/17 [Rx] Insulin DETEMIR [Levemir] 10 unit SQ BID [id number] 08/18/17 [Rx] Metoprolol [Lopressor] 100 mg PO BID tablet 08/18/17 [Rx] methIMAzole [Tapazole] 5 mg PO TID tablet 08/18/17 [Rx] Allergies/Adverse Reactions: 3 Allergy/AdvReac Type Severity Reaction Status Date / Time guaifenesin [From Mucinex] Allergy Rash Verified 08/11/17 10:44 Penicillins [PCN] Allergy Rash Verified 08/11/17 10:44 sulfamethoxazole Allergy Rash Verified 08/11/17 10:44 [From Bactrim] trimethoprim [From Bactrim] Allergy Rash Verified 08/11/17 10:44 chlorine Allergy See Uncoded 08/11/17 10:44 Comments Date of admission: 08/11/17 13:00 Primary care physician: Harriet Lama Consults: 08/11/17 13:18 Consult to Cardiology [CONS] Routine Comment: Consulting Provider: Cardiology Rosanna Reason for Consult: new onset of afib Call Completed: Yes 08/13/17 13:49 Consult to Occupational Therapy [CONS] Routine Comment: Evaluate, develop and implement POC Reason for Consult: Generalized weakness, delirium Does patient have active BEDREST order?: No Is patient medically & hemodynamically stable?: Yes Patient assessed for mobility or mobilized this visit?: No Consult to Physical Therapy [CONS] Routine Comment: Evaluate, develop and implement POC Reason for Consult: Generalized weakness, delirium Does patient have active BEDREST order?: No Is patient medically & hemodynamically stable?: Yes Patient assessed for mobility or mobilized this visit?: No 08/15/17 14:05 Consult to Garden Consultant [CONS] Routine Reason for SW Consult: ECF placement - Constitutional Vitals: Temp Pulse Resp BP Pulse Ox 97.8 F 85 18 148/63 98 08/18/17 11:00 08/18/17 11:00 08/18/17 11:17 08/18/17 11:00 05/24/18 11:17 General appearance: Present: A&O X 2, A&O X 3, morbidly obese, no acute distress , answers questions appropriately - Patient Status Disposition: Transfer SNF Condition: Fair - Discharge Instructions Follow Up With: Harriet Lama MD [Primary Care Provider] - 08/24/17 1:45 pm (web request 08/14/2017)
--- NOTE | 2017-08-18 14:24 | Physician Discharge Referral ---
ExtendedCare Referral Info Institutional Level of Care: Skilled - Diagnosis (1) Acute encephalopathy Status: Resolved (2) Pulmonary embolism Status: Acute (3) CAD (coronary artery disease) Status: Chronic (4) HTN (hypertension) Status: Chronic (5) Hyperlipidemia Status: Chronic (6) Diabetes mellitus Status: Chronic (7) Hyperthyroidism Status: Acute (8) Morbid obesity Status: Chronic (9) CKD (chronic kidney disease), stage III Status: Chronic (10) DVT prophylaxis Status: Acute - Transfer Medications Prescriptions: Rivaroxaban [Xarelto] 15 mg PO BID #23 tablet Rivaroxaban [Xarelto] 20 mg PO DAILY #30 tablet Home Medications: Aspirin [Adult Aspirin Regimen] 81 mg PO DAILY 08/11/17 [History] Calcium Carbonate [Calcium] 500 mg PO DAILY 08/11/17 [History] Multivitamin [One Daily Essential] 1 tab PO DAILY 08/11/17 [History] Simvastatin [Zocor] 20 mg PO HS 08/11/17 [History] metFORMIN [Glucophage] 500 mg PO DAILY 08/11/17 [History] Rivaroxaban [Xarelto] 15 mg PO BID #23 tablet 08/15/17 [Rx] Rivaroxaban [Xarelto] 20 mg PO DAILY #30 tablet 08/15/17 [Rx] Diltiazem CD (24hr) [Cardizem CD] 180 mg PO DAILY cap.er.24h 08/18/17 [Rx] Insulin DETEMIR [Levemir] 10 unit SQ BID [id number] 08/18/17 [Rx] Metoprolol [Lopressor] 100 mg PO BID tablet 08/18/17 [Rx] methIMAzole [Tapazole] 5 mg PO TID tablet 08/18/17 [Rx] Allergies/Adverse Reactions: 3 Allergy/AdvReac Type Severity Reaction Status Date / Time guaifenesin [From Mucinex] Allergy Rash Verified 08/11/17 10:44 Penicillins [PCN] Allergy Rash Verified 08/11/17 10:44 sulfamethoxazole Allergy Rash Verified 08/11/17 10:44 [From Bactrim] trimethoprim [From Bactrim] Allergy Rash Verified 08/11/17 10:44 chlorine Allergy See Uncoded 08/11/17 10:44 Comments - Respiratory Orders Smoking Cessation: Smoking cessation has been advised. For more information, call the [place] Tobacco Quit Line at 8-834-JBFF-NOW. CERTIFICATION: I certify that the transfer of the above named patient to an Extended Care Facility is necessary for the continuing treatment of the diagnosis listed. The above information is true and accurate reflection of patient's current condition. Confidential - Redisclosure prohibited without a patient's written consent.
== END 2017-08-18 16:09 | DRG 175 ==
LOC: EMEROO 08:56 → 2ANU 08:56 → SUATTDRO 13:00
PROVIDERS: ADMIT Student in an Organized Health Care Education/Training Program; ATTEND Hospitalist